=== PATIENT | male | born 1975 | race African-American/Black ===

== ENCOUNTER 2016-11-06 19:10 | Emergency (ER) | payer MEDICARE, MEDICAID ==
[~2016-11-06] VITALS: Ht 177.8 cm; Wt 168.0 kg
[~2016-11-06 19:10] MED LIST: AMOX125S8 PO; HALO100A IM; LISI10TA5 PO; METO-296 PO
[2016-11-07 01:10] LABS: BASOPHILS % 0.7 % (0.0-2.0); EOSINOPHILS % 2.6 % (0.0-5.0); HEMATOCRIT. 44.2 % (42.0-52.0); HEMOGLOBIN. 14.2 g/dL (14.0-18.0); LYMPHOCYTES % 22.5 % (20.0-50.0); MEAN CORPUSCULAR HGB CONC 32.2 g/dL (31.0-37.0); MEAN CORPUSCULAR VOLUME 80.7 fL (80.0-94.0); MEAN PLATELET VOLUME 9.8 fl (7.4-10.4); MONOCYTES % 9.1 % (2.0-8.0); NEUTROPHILS % 65.1 % (40.0-76.0); PLATELET 207 x1000/uL (130-400); RED BLOOD CELL COUNT 5.47 mill/uL (4.7-6.1); RED CELL DISTRIBUTION WIDTH 14.1 % (11.6-14.6); WHITE BLOOD COUNT 11.8 x1000/uL (4.5-11.0)
[2016-11-07 01:13] LABS: *AMPHETAMINES SCREEN URINE NEGATIVE (NEGATIVE); *BARBITURATES SCREEN URINE NEGATIVE (NEGATIVE); *BENZODIAZEPINES SCREEN URINE NEGATIVE (NEGATIVE); *COCAINE SCREEN URINE NEGATIVE (NEGATIVE); CANNABINOID URINE SCREEN NEGATIVE (NEGATIVE); ECSTASY MDMA SCREEN URINE NEGATIVE (NEGATIVE); METHADONE URINE SCREEN NEGATIVE (NEGATIVE); OPIATES URINE SCREEN NEGATIVE (NEGATIVE); PHENCYCLIDINE URINE SCREEN NEGATIVE (NEGATIVE)
[2016-11-07 01:18] LABS: ANION GAP 9; CARBON DIOXIDE 31 mEq/L (21-32); CHLORIDE 102 mEq/L (98-107); INDEX HEMOLYSI 1 (1-3); INDEX ICTERIC 1 (1-4); INDEX LIPEMIC 1 (1-3); UREA NITROGEN BLOOD 13 mg/dL (7-21)
[2016-11-07 01:19] LABS: ACETAMINOPHEN < 2 ug/mL (10-30); CALCIUM 8.8 mg/dL (8.5-10.1); ETHANOL BLOOD < 10 mg/dL; eGFR > 60 mL/min (>60)
[2016-11-07] MEDS ORDERED: METOPROLOL TARTRATE 25MG TABLET PO ONE (20:00)
[2016-11-08 04:00] VITALS: BP 142/68
== END 2016-11-08 11:59 | disposition left against medical advice (07) ==
LOC: ER 19:11
DX: F20.9 Schizophrenia, unspecified (principal); F31.9 Bipolar disorder, unspecified; J45.909 Unspecified asthma, uncomplicated; I10 Essential (primary) hypertension; N40.0 Benign prostatic hyperplasia without lower urinary tract symptoms; Z88.8 Allergy status to other drugs, medicaments and biological substances; Z79.899 Other long term (current) drug therapy; Z79.2 Long term (current) use of antibiotics; Z90.49 Acquired absence of other specified parts of digestive tract; Z59.0 Homelessness
CPT/HCPCS: 36415; 80048; 80305; 80307; 80329; 85025; 99284; G0482

== ENCOUNTER 2016-12-01 03:06 | Emergency (ER) | payer MEDICARE, MEDICAID ==
[~2016-12-01] VITALS: Ht 180.3 cm; Wt 170.0 kg
[2016-12-01 03:45] VITALS: BP 123/80
[2016-12-01] MEDS ORDERED: IBUPROFEN 800MG TABLET PO ONE (04:30)
[2016-12-01] MEDS ORDERED: FUROSEMIDE 40MG TABLET PO ONE (04:30)
== END 2016-12-01 07:07 | disposition home or self-care (01) ==
LOC: ER 03:09
DX: R60.0 Localized edema (principal); G89.29 Other chronic pain; I10 Essential (primary) hypertension; J45.909 Unspecified asthma, uncomplicated; Z88.3 Allergy status to other anti-infective agents; Z88.8 Allergy status to other drugs, medicaments and biological substances; Z90.49 Acquired absence of other specified parts of digestive tract
CPT/HCPCS: 99283

== ENCOUNTER 2016-12-17 15:57 | Emergency (ER) | payer MEDICARE, MEDICAID ==
[~2016-12-17] VITALS: Ht 177.8 cm; Wt 163.0 kg
[2016-12-17] MEDS ORDERED: IPRATROPIUM BROMIDE (0.02%) 0.5MG/2.5ML NEB HHN STA (22:20)
[2016-12-17] MEDS ORDERED: ALBUTEROL (0.083%) 2.5MG/3ML NEB HHN STA (22:20)
[2016-12-17] MEDS ORDERED: ZIPRASIDONE HCL 60MG CAPSULE PO ONE (22:45)
[2016-12-17] MEDS ORDERED: METOPROLOL TARTRATE 25MG TABLET PO ONE (22:45)
[2016-12-17] MEDS ORDERED: IPRATROPIUM/ALBUTEROL 0.5-3(2.5)MG/3ML NEB ONE (23:02)
[2016-12-17] MEDS ORDERED: ALBUTEROL (0.5%) 2.5MG/0.5ML NEB HHN ONE (23:03)
[2016-12-18 00:05] LABS: CHLORIDE 102 mEq/L (98-107); INDEX HEMOLYSI 1 (1-3); INDEX ICTERIC 1 (1-4); INDEX LIPEMIC 1 (1-3)
[2016-12-18 00:14] LABS: ACETAMINOPHEN < 2 ug/mL (10-30); ALANINE AMINOTRANSFERASE 23 IU/L (13-61); ALBUMIN 3.7 g/dL (3.4-5.0); ANION GAP 14; CALCIUM 8.9 mg/dL (8.5-10.1); CARBON DIOXIDE 26 mEq/L (21-32); ETHANOL BLOOD < 10 mg/dL; UREA NITROGEN BLOOD 12 mg/dL (7-21); eGFR > 60 mL/min (>60)
[2016-12-18 00:19] LABS: BASOPHILS % 0.5 % (0.0-2.0); DIFFERENTIAL COMMENT 0; EOSINOPHILS % 2.7 % (0.0-5.0); HEMATOCRIT. 45.3 % (42.0-52.0); HEMOGLOBIN. 14.9 g/dL (14.0-18.0); LYMPHOCYTES % 15.9 % (20.0-50.0); MEAN CORPUSCULAR HEMOGLOBIN 26.3 pg (28.0-32.0); MEAN CORPUSCULAR VOLUME 79.8 fL (80.0-94.0); MEAN PLATELET VOLUME 9.6 fl (7.4-10.4); MONOCYTES % 7.1 % (2.0-8.0); NEUTROPHILS % 73.8 % (40.0-76.0); PLATELET 223 x1000/uL (130-400); RED BLOOD CELL COUNT 5.67 mill/uL (4.7-6.1); RED CELL DISTRIBUTION WIDTH 14.4 % (11.6-14.6); WHITE BLOOD COUNT 14.9 x1000/uL (4.5-11.0)
[2016-12-18 04:57] LABS: *AMPHETAMINES SCREEN URINE NEGATIVE (NEGATIVE); *BARBITURATES SCREEN URINE NEGATIVE (NEGATIVE); *COCAINE SCREEN URINE NEGATIVE (NEGATIVE); CANNABINOID URINE SCREEN NEGATIVE (NEGATIVE); ECSTASY MDMA SCREEN URINE NEGATIVE (NEGATIVE); METHADONE URINE SCREEN NEGATIVE (NEGATIVE); OPIATES URINE SCREEN NEGATIVE (NEGATIVE); PHENCYCLIDINE URINE SCREEN NEGATIVE (NEGATIVE)
[2016-12-18 05:09] LABS: *BENZODIAZEPINES SCREEN URINE NEGATIVE (NEGATIVE)
[2016-12-18 09:00] VITALS: BP 138/71
[2016-12-18] MEDS ORDERED: OMEPRAZOLE 20MG CAPSULE EXTENDED RELEASE PO ONE (10:30)
== END 2016-12-18 11:40 | disposition left against medical advice (07) ==
LOC: ER 15:57
DX: J45.901 Unspecified asthma with (acute) exacerbation (principal); I10 Essential (primary) hypertension; D64.9 Anemia, unspecified; Z59.0 Homelessness; Z90.49 Acquired absence of other specified parts of digestive tract; Z79.899 Other long term (current) drug therapy
CPT/HCPCS: 36415; 80053; 80302; 80305; 80329; 85025; 94640; 99284; G0482; J7611; J7620

== ENCOUNTER 2017-01-09 10:43 | Emergency (ER) | payer MEDICARE, MEDICAID ==
[~2017-01-09] VITALS: Ht 182.9 cm; Wt 128.0 kg
[2017-01-09 12:12] LABS: BASOPHILS % 0.5 % (0.0-2.0); DIFFERENTIAL COMMENT 0; HEMATOCRIT. 39.9 % (42.0-52.0); LYMPHOCYTES % 15.8 % (20.0-50.0); MEAN CORPUSCULAR HEMOGLOBIN 25.8 pg (28.0-32.0); MEAN CORPUSCULAR HGB CONC 32.6 g/dL (31.0-37.0); MEAN CORPUSCULAR VOLUME 79.1 fL (80.0-94.0); MEAN PLATELET VOLUME 9.6 fl (7.4-10.4); MONOCYTES % 8.2 % (2.0-8.0); NEUTROPHILS % 72.5 % (40.0-76.0); PLATELET 196 x1000/uL (130-400); RED BLOOD CELL COUNT 5.04 mill/uL (4.7-6.1); RED CELL DISTRIBUTION WIDTH 14.8 % (11.6-14.6); WHITE BLOOD COUNT 10.2 x1000/uL (4.5-11.0)
[2017-01-09 12:19] LABS: PROTHROMBIN TIME 10.5 sec
[2017-01-09 12:26] LABS: ACETAMINOPHEN < 2 ug/mL (10-30); ALANINE AMINOTRANSFERASE 30 IU/L (13-61); ALBUMIN 3.5 g/dL (3.4-5.0); ANION GAP 12; CALCIUM 8.5 mg/dL (8.5-10.1); CARBON DIOXIDE 26 mEq/L (21-32); CHLORIDE 107 mEq/L (98-107); INDEX HEMOLYSI 1 (1-3); INDEX ICTERIC 1 (1-4); INDEX LIPEMIC 1 (1-3); UREA NITROGEN BLOOD 9 mg/dL (7-21); eGFR > 60 mL/min (>60)
[2017-01-09 12:27] LABS: NT PRO B-TYPE NATRIURETIC PEP 124 pg/mL (5-125)
[2017-01-09 12:56] LABS: CLARITY URINE CLEAR (CLEAR); COLOR URINE YELLOW (YELLOW); GLUCOSE URINE NEGATIVE (NEGATIVE); KETONES URINE NEGATIVE (NEGATIVE); LEUKOCYTE ESTERASE URINE NEGATIVE (NEGATIVE); NITRITE URINE NEGATIVE (NEGATIVE); OCCULT BLOOD URINE NEGATIVE (NEGATIVE); PROTEIN URINE NEGATIVE (NEGATIVE); SPECIFIC GRAVITY URINE 1.012 (1.005-1.030); UROBILINOGEN URINE 0.2 E.U./dL (0.2-1.0)
[2017-01-09 13:11] LABS: *AMPHETAMINES SCREEN URINE NEGATIVE (NEGATIVE); *BARBITURATES SCREEN URINE NEGATIVE (NEGATIVE); *BENZODIAZEPINES SCREEN URINE NEGATIVE (NEGATIVE); *COCAINE SCREEN URINE NEGATIVE (NEGATIVE); CANNABINOID URINE SCREEN NEGATIVE (NEGATIVE); ECSTASY MDMA SCREEN URINE NEGATIVE (NEGATIVE); METHADONE URINE SCREEN NEGATIVE (NEGATIVE); OPIATES URINE SCREEN NEGATIVE (NEGATIVE); PHENCYCLIDINE URINE SCREEN NEGATIVE (NEGATIVE)
[2017-01-09 15:44] VITALS: BP 131/69
== END 2017-01-09 16:07 | disposition home or self-care (01) ==
LOC: ER 11:29
DX: F41.9 Anxiety disorder, unspecified (principal); J45.909 Unspecified asthma, uncomplicated; F31.9 Bipolar disorder, unspecified; I10 Essential (primary) hypertension; F20.9 Schizophrenia, unspecified; Z88.8 Allergy status to other drugs, medicaments and biological substances; Z79.899 Other long term (current) drug therapy
CPT/HCPCS: 36415; 80053; 80305; 80307; 80329; 81003; 83880; 85025; 85610; 93005; 99284; 99285

== ENCOUNTER 2017-01-20 12:38 | Emergency (ER) | payer MEDICARE, MEDICAID ==
[~2017-01-20] VITALS: Ht 167.6 cm; Wt 160.0 kg
[2017-01-20 12:42] VITALS: BP 177/86
== END 2017-01-20 16:57 | disposition home or self-care (01) ==
LOC: ER 13:12
DX: M54.2 Cervicalgia (principal); G89.29 Other chronic pain; J45.909 Unspecified asthma, uncomplicated; I10 Essential (primary) hypertension; F20.9 Schizophrenia, unspecified; R22.1 Localized swelling, mass and lump, neck; F31.89 Other bipolar disorder; Z90.49 Acquired absence of other specified parts of digestive tract; Z92.29 Personal history of other drug therapy
CPT/HCPCS: 99283

== ENCOUNTER 2017-01-20 18:00 | Emergency (ER) | payer MEDICARE, MEDICAID | END 2017-01-21 01:52 | disposition left against medical advice (07) | LOC: ER 18:00 | DX: R06.02 Shortness of breath (principal); Z53.21 Procedure and treatment not carried out due to patient leaving prior to being seen by health care provider ==

== ENCOUNTER 2017-05-30 14:02 | Emergency (ER) | payer MEDICARE, MEDICAID ==
[~2017-05-30] VITALS: Ht 170.2 cm; Wt 137.0 kg
[~2017-05-30 14:02] MED LIST changes: -METO-296 PO; +METO-396 PO
[2017-05-30] MEDS ORDERED: CHLORPROMAZINE HCL 25 MG TABLET PO ONE (20:45)
[2017-05-30] MEDS ORDERED: METOPROLOL TARTRATE 25MG TABLET PO ONE (20:45)
[2017-05-30] MEDS ORDERED: ACETAMINOPHEN 500MG TABLET PO ONE (21:45)
[2017-05-30 22:08] VITALS: BP 145/83
== END 2017-05-30 22:09 | disposition home or self-care (01) ==
LOC: ER 14:02
DX: R51 Headache (principal); F20.9 Schizophrenia, unspecified; F31.9 Bipolar disorder, unspecified; I10 Essential (primary) hypertension; J45.909 Unspecified asthma, uncomplicated; Z88.8 Allergy status to other drugs, medicaments and biological substances; Z90.49 Acquired absence of other specified parts of digestive tract
CPT/HCPCS: 99284; Q0161

== ENCOUNTER 2017-06-06 04:46 | Emergency (ER) | payer MEDICARE, MEDICAID ==
[2017-06-06 07:47] LABS: BASOPHILS % 0.5 % (0.0-2.0); EOSINOPHILS % 2.4 % (0.0-5.0); HEMATOCRIT. 43.3 % (42.0-52.0); HEMOGLOBIN. 14.2 g/dL (14.0-18.0); MEAN CORPUSCULAR HEMOGLOBIN 25.9 pg (28.0-32.0); MEAN CORPUSCULAR VOLUME 78.8 fL (80.0-94.0); MEAN PLATELET VOLUME 9.6 fl (7.4-10.4); MONOCYTES % 8.7 % (2.0-8.0); NEUTROPHILS % 68.4 % (40.0-76.0); PLATELET 197 x1000/uL (130-400); RED CELL DISTRIBUTION WIDTH 14.5 % (11.6-14.6)
[2017-06-06 07:54] LABS: GLUCOSE URINE NEGATIVE (NEGATIVE); KETONES URINE NEGATIVE (NEGATIVE); LEUKOCYTE ESTERASE URINE NEGATIVE (NEGATIVE); NITRITE URINE NEGATIVE (NEGATIVE); OCCULT BLOOD URINE NEGATIVE (NEGATIVE); PROTEIN URINE NEGATIVE (NEGATIVE); SPECIFIC GRAVITY URINE 1.003 (1.005-1.030); UROBILINOGEN URINE 0.2 E.U./dL (0.2-1.0)
[2017-06-06 07:58] LABS: CLARITY URINE CLEAR (CLEAR); COLOR URINE YELLOW (YELLOW)
[2017-06-06 08:03] LABS: CARBON DIOXIDE 30 mEq/L (21-32); CHLORIDE 106 mEq/L (98-107); ETHANOL BLOOD < 10 mg/dL
[2017-06-06 08:09] LABS: *AMPHETAMINES SCREEN URINE NEGATIVE (NEGATIVE); *BARBITURATES SCREEN URINE NEGATIVE (NEGATIVE); *BENZODIAZEPINES SCREEN URINE NEGATIVE (NEGATIVE); *COCAINE SCREEN URINE NEGATIVE (NEGATIVE); CANNABINOID URINE SCREEN NEGATIVE (NEGATIVE); METHADONE URINE SCREEN NEGATIVE (NEGATIVE); OPIATES URINE SCREEN NEGATIVE (NEGATIVE); PHENCYCLIDINE URINE SCREEN NEGATIVE (NEGATIVE)
[2017-06-06] MEDS ORDERED: DOCUSATE SODIUM 250MG CAPSULE PO ONE (10:15)
[2017-06-06] MEDS ORDERED: METOPROLOL TARTRATE 25MG TABLET PO ONE (10:15)
[2017-06-06 12:10] VITALS: BP 118/76
[2017-06-07] MEDS ORDERED: ALBU18HF2 IH (09:17)
== END 2017-06-06 13:33 | disposition home or self-care (01) ==
LOC: ER 04:46
DX: R44.0 Auditory hallucinations (principal); E66.9 Obesity, unspecified; F20.9 Schizophrenia, unspecified; I10 Essential (primary) hypertension; J45.909 Unspecified asthma, uncomplicated; F31.9 Bipolar disorder, unspecified; Z59.0 Homelessness; Z88.8 Allergy status to other drugs, medicaments and biological substances
CPT/HCPCS: 36415; 80053; 80305; 81003; 85025; 99284; G0482

== ENCOUNTER 2017-06-07 06:29 | Emergency (ER) | payer MEDICARE, MEDICAID ==
[~2017-06-07] VITALS: Ht 182.9 cm; Wt 118.0 kg
[2017-06-07 06:49] VITALS: BP 130/78
[2017-06-07] MEDS ORDERED: ALBU18HF2 IH (09:17)
== END 2017-06-07 07:35 | disposition home or self-care (01) ==
LOC: ER 06:30
DX: R51 Headache (principal); K59.09 Other constipation; E66.9 Obesity, unspecified; I10 Essential (primary) hypertension; J45.909 Unspecified asthma, uncomplicated; F41.9 Anxiety disorder, unspecified; Z88.8 Allergy status to other drugs, medicaments and biological substances
CPT/HCPCS: 99283

== ENCOUNTER 2017-06-08 17:29 | Emergency (ER) | payer MEDICARE, MEDICAID ==
[~2017-06-08 17:29] MED LIST changes: +ALBU18HF2 IH
== END 2017-06-08 18:17 | disposition left against medical advice (07) ==
LOC: ER 17:29
DX: R07.9 Chest pain, unspecified (principal); R06.02 Shortness of breath; Z53.21 Procedure and treatment not carried out due to patient leaving prior to being seen by health care provider

== ENCOUNTER 2017-08-24 03:33 | Emergency (ER) | payer MEDICARE, MEDICAID ==
[~2017-08-24] VITALS: Ht 180.3 cm; Wt 161.0 kg
[2017-08-24 05:53] LABS: CLARITY URINE CLEAR (CLEAR); COLOR URINE YELLOW (YELLOW); KETONES URINE NEGATIVE (NEGATIVE); LEUKOCYTE ESTERASE URINE NEGATIVE (NEGATIVE); NITRITE URINE NEGATIVE (NEGATIVE); OCCULT BLOOD URINE NEGATIVE (NEGATIVE); PROTEIN URINE NEGATIVE (NEGATIVE); SPECIFIC GRAVITY URINE 1.021 (1.005-1.030)
[2017-08-24 06:22] LABS: BASOPHILS % 0.2 % (0.0-2.0); EOSINOPHILS % 3.7 % (0.0-5.0); HEMATOCRIT. 41.1 % (42.0-52.0); HEMOGLOBIN. 13.2 g/dL (14.0-18.0); LYMPHOCYTES % 17.6 % (20.0-50.0); MEAN CORPUSCULAR HEMOGLOBIN 25.9 pg (28.0-32.0); MEAN CORPUSCULAR VOLUME 80.9 fL (80.0-94.0); MEAN PLATELET VOLUME 9.5 fl (7.4-10.4); MONOCYTES % 8.1 % (2.0-8.0); NEUTROPHILS % 70.4 % (40.0-76.0); PLATELET 176 x1000/uL (130-400); RED BLOOD CELL COUNT 5.08 mill/uL (4.7-6.1); RED CELL DISTRIBUTION WIDTH 14.5 % (11.6-14.6)
[2017-08-24 06:29] LABS: PROTHROMBIN TIME 10.2 sec (9.4-11.6)
[2017-08-24 06:37] LABS: CARBON DIOXIDE 28 mEq/L (21-32); CHLORIDE 107 mEq/L (98-107)
[2017-08-24 07:56] VITALS: BP 138/78
== END 2017-08-24 09:03 | disposition left against medical advice (07) ==
LOC: ER 03:45
DX: Z53.21 Procedure and treatment not carried out due to patient leaving prior to being seen by health care provider (principal)
CPT/HCPCS: 36415; 80053; 81003; 83690; 85025; 85610; 99284

== ENCOUNTER 2017-08-24 14:05 | Emergency (ER) | payer MEDICARE, MEDICAID ==
[~2017-08-24] VITALS: Ht 177.8 cm; Wt 140.0 kg
[2017-08-24 14:07] VITALS: BP 129/82
== END 2017-08-24 16:50 | disposition left against medical advice (07) ==
LOC: ER 14:05
DX: Z53.21 Procedure and treatment not carried out due to patient leaving prior to being seen by health care provider (principal)

== ENCOUNTER 2017-09-06 21:38 | Emergency (ER) | payer MEDICARE, MEDICAID ==
[~2017-09-06] VITALS: Ht 182.9 cm; Wt 118.0 kg
[2017-09-07] LABS: BASOPHILS % 0.5 % (0.0-2.0); EOSINOPHILS % 4.2 % (0.0-5.0); HEMATOCRIT. 38.7 % (42.0-52.0); HEMOGLOBIN. 12.4 g/dL (14.0-18.0); LYMPHOCYTES % 20.2 % (20.0-50.0); MEAN CORPUSCULAR HEMOGLOBIN 25.9 pg (28.0-32.0); MEAN CORPUSCULAR VOLUME 80.5 fL (80.0-94.0); MEAN PLATELET VOLUME 8.5 fl (7.4-10.4); NEUTROPHILS % 67.1 % (40.0-76.0); PLATELET 247 x1000/uL (130-400); RED BLOOD CELL COUNT 4.81 mill/uL (4.7-6.1); RED CELL DISTRIBUTION WIDTH 14.6 % (11.6-14.6)
[2017-09-07 00:06] LABS: CHLORIDE 105 mEq/L (98-107)
[2017-09-07 00:12] LABS: CARBON DIOXIDE 29 mEq/L (21-32); ETHANOL BLOOD < 10 mg/dL
[2017-09-07 01:04] LABS: CLARITY URINE CLEAR (CLEAR); COLOR URINE YELLOW (YELLOW); KETONES URINE TRACE (NEGATIVE); LEUKOCYTE ESTERASE URINE NEGATIVE (NEGATIVE); NITRITE URINE NEGATIVE (NEGATIVE); OCCULT BLOOD URINE NEGATIVE (NEGATIVE); PROTEIN URINE NEGATIVE (NEGATIVE); SPECIFIC GRAVITY URINE 1.021 (1.005-1.030)
[2017-09-07 01:45] LABS: *AMPHETAMINES SCREEN URINE NEGATIVE (NEGATIVE); *BARBITURATES SCREEN URINE PRESUMTIVE POSITIVE (NEGATIVE); *BENZODIAZEPINES SCREEN URINE NEGATIVE (NEGATIVE); *COCAINE SCREEN URINE NEGATIVE (NEGATIVE); CANNABINOID URINE SCREEN NEGATIVE (NEGATIVE); METHADONE URINE SCREEN NEGATIVE (NEGATIVE); OPIATES URINE SCREEN NEGATIVE (NEGATIVE); PHENCYCLIDINE URINE SCREEN NEGATIVE (NEGATIVE)
[2017-09-07] MEDS ORDERED: TAMSULOSIN HCL 0.4MG SR CAPSULE PO ONE (09:30)
[2017-09-07] MEDS ORDERED: FUROSEMIDE 40MG TABLET PO ONE (09:30)
[2017-09-07] MEDS ORDERED: METOPROLOL TARTRATE 25MG TABLET PO ONE (09:30)
[2017-09-07] MEDS ORDERED: BENAZEPRIL 20MG TABLET PO ONE (09:30)
[2017-09-07] MEDS ORDERED: LIDOCAINE HCL 1% 20ML VIAL (Pyxis) INJ INFIL ONE (15:15)
[2017-09-07] MEDS ORDERED: CEFTRIAXONE SODIUM 250 MG/VIAL IM ONE (15:15)
[2017-09-07] MEDS ORDERED: LORAZEPAM 1MG TABLET PO ONE (18:45)
[2017-09-07 20:27] LABS: BASOPHILS % 0.9 % (0.0-2.0); EOSINOPHILS % 3.7 % (0.0-5.0); HEMATOCRIT. 41.9 % (42.0-52.0); HEMOGLOBIN. 13.6 g/dL (14.0-18.0); LYMPHOCYTES % 24.1 % (20.0-50.0); MEAN CORPUSCULAR HEMOGLOBIN 26.2 pg (28.0-32.0); MEAN CORPUSCULAR VOLUME 80.6 fL (80.0-94.0); MEAN PLATELET VOLUME 8.9 fl (7.4-10.4); MONOCYTES % 7.6 % (2.0-8.0); NEUTROPHILS % 63.7 % (40.0-76.0); PLATELET 278 x1000/uL (130-400); RED CELL DISTRIBUTION WIDTH 14.2 % (11.6-14.6)
[2017-09-08 01:56] VITALS: BP 122/71
== END 2017-09-08 02:28 ==
LOC: ER 21:53
DX: F23 Brief psychotic disorder (principal); R45.851 Suicidal ideations; F41.9 Anxiety disorder, unspecified; F32.9 Major depressive disorder, single episode, unspecified; J45.909 Unspecified asthma, uncomplicated; I10 Essential (primary) hypertension; D72.829 Elevated white blood cell count, unspecified; F13.10 Sedative, hypnotic or anxiolytic abuse, uncomplicated; Z90.49 Acquired absence of other specified parts of digestive tract
CPT/HCPCS: 36415; 71010; 80048; 80305; 81003; 82962; 85025; 96372; 99285; G0482; J0696; J3490

== ENCOUNTER 2019-05-04 06:31 | Emergency (ER) | payer MEDICARE, MEDICAID ==
[~2019-05-04] VITALS: Ht 182.9 cm; Wt 140.0 kg
[~2019-05-04 06:31] MED LIST changes: +AMOX125S12 PO; -AMOX125S8 PO
[2019-05-04 08:45] LABS: BASOPHILS % 0.7 % (0.0-2.0); EOSINOPHILS % 4.2 % (0.0-5.0); HEMATOCRIT. 47.6 % (42.0-52.0); LYMPHOCYTES % 16.9 % (20.0-50.0); MEAN CORPUSCULAR HEMOGLOBIN 27.7 pg (28.0-32.0); MEAN CORPUSCULAR VOLUME 82.2 fL (80.0-94.0); MEAN PLATELET VOLUME 9.3 fl (7.4-10.4); MONOCYTES % 6.2 % (2.0-8.0); PLATELET 186 x1000/uL (130-400); RED BLOOD CELL COUNT 5.79 mill/uL (4.7-6.1); RED CELL DISTRIBUTION WIDTH 14.5 % (11.6-14.6)
[2019-05-04 08:51] LABS: CHLORIDE 105 mEq/L (98-107)
[2019-05-04 08:52] LABS: PROTHROMBIN TIME 10.5 sec (9.6-11.0)
[2019-05-04 10:15] VITALS: BP 122/75
== END 2019-05-04 10:17 | disposition home or self-care (01) ==
LOC: ER 06:31
DX: R00.2 Palpitations (principal); J45.909 Unspecified asthma, uncomplicated; I10 Essential (primary) hypertension; I48.91 Unspecified atrial fibrillation; F17.200 Nicotine dependence, unspecified, uncomplicated; Z79.899 Other long term (current) drug therapy; Z88.8 Allergy status to other drugs, medicaments and biological substances
CPT/HCPCS: 36415; 71045; 84484; 93005; 99284

== ENCOUNTER 2019-06-01 06:27 | Emergency (ER) | payer MEDICARE, MEDICAID ==
[~2019-06-01] VITALS: Ht 185.4 cm; Wt 127.0 kg
[2019-06-01] MEDS ORDERED: OLANZAPINE 10 MG/VIAL IM ONE (09:15)
[2019-06-01] MEDS ORDERED: LORAZEPAM 1MG TABLET PO ONE (09:15)
[2019-06-01] MEDS ORDERED: ALBUTEROL (0.083%) 2.5MG/3ML NEB HHN ONE (09:15)
[2019-06-01 13:12] VITALS: BP 147/76
== END 2019-06-01 13:13 | disposition home or self-care (01) ==
LOC: ER 06:27
DX: F41.9 Anxiety disorder, unspecified (principal); J45.901 Unspecified asthma with (acute) exacerbation; F31.9 Bipolar disorder, unspecified; I10 Essential (primary) hypertension; F17.200 Nicotine dependence, unspecified, uncomplicated; I48.91 Unspecified atrial fibrillation; Z88.8 Allergy status to other drugs, medicaments and biological substances; Z79.899 Other long term (current) drug therapy
CPT/HCPCS: 71045; 94640; 96372; 99284; J3490; J7611

== ENCOUNTER 2019-06-03 00:15 | Inpatient (IN) | payer MEDICARE, MEDICAID ==
[~2019-06-03] VITALS: Ht 180.3 cm; Wt 162.4 kg
[2019-06-03] MEDS ORDERED: MAGNESIUM 2 G PREMIX 50 ML IV STA (01:53)
[2019-06-03] MEDS ORDERED: ALBUTEROL (0.083%) 2.5MG/3ML NEB HHN STA (01:53)
[2019-06-03] MEDS ORDERED: IPRATROPIUM BROMIDE (0.02%) 0.5MG/2.5ML NEB HHN STA (01:53)
[2019-06-03] MEDS ORDERED: DEXAMETHASONE 10 MG/ML VIAL IV ONE (02:00)
[2019-06-03 02:16] LABS: HEMATOCRIT 45.7 % (42.0-52.0); HEMOGLOBIN 14.9 g/dL (14.0-18.0); MEAN CORPUSCULAR HEMOGLOBIN 26.7 pg (28.0-32.0); MEAN CORPUSCULAR VOLUME 81.6 fL (80.0-94.0); PLATELET 188 x1000/uL (130-400); RED CELL DISTRIBUTION WIDTH 13.8 % (11.6-14.6)
[2019-06-03 02:23] LABS: CHLORIDE 106 mEq/L (98-107)
[2019-06-03] MEDS ORDERED: DIPHENHYDRAMINE 25MG CAPSULE PO ONE (02:30)
[2019-06-03] MEDS ORDERED: DIPHENHYDRAMINE 50MG/ML VIAL IV PRN (08:00)
[2019-06-03] MEDS ORDERED: CLONIDINE 0.1MG TABLET PO PRN (08:00)
[2019-06-03] MEDS ORDERED: KETOROLAC 15MG/ML VIAL IV PRN ×2 (08:00→17:30)
[2019-06-03] MEDS ORDERED: NITROGLYCERIN 0.4MG TABLET SL SL PRN (08:00)
[2019-06-03] MEDS ORDERED: DOCUSATE SODIUM 100MG CAPSULE PO PRN (08:00)
[2019-06-03] MEDS ORDERED: HALOPERIDOL LACTATE 5MG/ML VIAL IM PRN (08:00)
[2019-06-03] MEDS ORDERED: ACETAMINOPHEN 325MG TABLET PO PRN (08:00)
[2019-06-03] MEDS ORDERED: GUAIFENESIN 200MG/10ML SUGAR FREE UDC PO PRN (08:00)
[2019-06-03] MEDS ORDERED: ONDANSETRON HCL 4MG/2ML INJ IV PRN (08:00)
[2019-06-03] MEDS ORDERED: IPRATROPIUM/ALBUTEROL 0.5-3(2.5)MG/3ML NEB NEB PRN (08:00)
[2019-06-03] MEDS ORDERED: MAGNESIUM/ALUMINUM HYDROXIDE/SIMETHICONE 30ML UDC PO PRN (08:00)
[2019-06-03] MEDS ORDERED: ZOLPIDEM TARTRATE 5MG TABLET PO PRN (08:00)
[2019-06-03 08:10] LABS: ETHANOL BLOOD < 10 mg/dL
[2019-06-03 08:13] LABS: HDL CHOLESTEROL 35 mg/dL (40-59); LDL CHOLESTEROL 71 mg/dL (5-100)
[2019-06-03] MEDS ORDERED: DILT180C93 PO (08:21)
[2019-06-03] MEDS ORDERED: ASPI-1393 PO (08:21)
[2019-06-03] MEDS ORDERED: TAMS-11 PO (08:21)
[2019-06-03] MEDS ORDERED: METO-396 PO (08:21)
[2019-06-03] MEDS ORDERED: FURO-151 PO (08:21)
[2019-06-03] MEDS ORDERED: HAL5 PO (08:21)
[2019-06-03 08:30] VITALS: BP 156/78
[2019-06-03 09:00] VITALS: BP 156/78
[2019-06-03] MEDS ORDERED: ASPIRIN 325MG EC TABLET PO SCH (09:00)
[2019-06-03] MEDS: IPRATROPIUM/ALBUTEROL 0.5-3(2.5)MG/3ML NEB HHN SCH ×4 (09:07→21:02)
[2019-06-03] MEDS: GUAIFENESIN/DM 600MG/30MG ER TAB 12HR PO SCH ×2 (09:31→20:01)
[2019-06-03] MEDS: ENOXAPARIN 40MG/0.4ML SYR SUBCUT SCH ×2 (09:32→20:01)
[2019-06-03] MEDS ORDERED: PREDNISONE 20MG TABLET PO SCH (10:00)
[2019-06-03] MEDS ORDERED: LEVOFLOXACIN 500MG PREMIX 100 ML IV SCH (10:00)
[2019-06-03 12:00] VITALS: BP 121/53
[2019-06-03] MEDS: DILTIAZEM HCL 60MG TABLET PO SCH ×2 (12:37→17:35)
[2019-06-03] MEDS: LORAZEPAM 0.5MG TABLET PO PRN ×2 (14:04→17:51)
[2019-06-03 16:00] VITALS: BP 158/73
[2019-06-03 20:00] VITALS: BP 158/75
[2019-06-03 23:12] LABS: OPIATES URINE SCREEN NEGATIVE (NEGATIVE)
[2019-06-03 23:13] LABS: *AMPHETAMINES SCREEN URINE NEGATIVE (NEGATIVE); *BARBITURATES SCREEN URINE NEGATIVE (NEGATIVE); *BENZODIAZEPINES SCREEN URINE NEGATIVE (NEGATIVE); *COCAINE SCREEN URINE NEGATIVE (NEGATIVE); CANNABINOID URINE SCREEN NEGATIVE (NEGATIVE); PHENCYCLIDINE URINE SCREEN NEGATIVE (NEGATIVE)
[2019-06-03 23:14] LABS: METHADONE URINE SCREEN NEGATIVE (NEGATIVE)
[2019-06-04] VITALS: BP 112/61
[2019-06-04] MEDS: DILTIAZEM HCL 60MG TABLET PO SCH (00:02)
[2019-06-04] MEDS: IPRATROPIUM/ALBUTEROL 0.5-3(2.5)MG/3ML NEB HHN SCH (00:39)
== END 2019-06-04 01:00 | disposition left against medical advice (07) | DRG 189 ==
LOC: ER 00:15 → 6WST 03:58 → EDBEDREQTM 04:03 → EDBEDREQ 04:03 → ENRESERV 07:15
PROVIDERS: ADMIT Internal Medicine; ATTEND Internal Medicine
DX: J96.00 Acute respiratory failure, unspecified whether with hypoxia or hypercapnia (principal); J45.901 Unspecified asthma with (acute) exacerbation; Z68.42 Body mass index [BMI] 45.0-49.9, adult; E11.9 Type 2 diabetes mellitus without complications; F20.9 Schizophrenia, unspecified; F31.9 Bipolar disorder, unspecified; I10 Essential (primary) hypertension; I48.91 Unspecified atrial fibrillation; E66.01 Morbid (severe) obesity due to excess calories; F17.210 Nicotine dependence, cigarettes, uncomplicated; Z53.21 Procedure and treatment not carried out due to patient leaving prior to being seen by health care provider; Z90.49 Acquired absence of other specified parts of digestive tract; Z79.51 Long term (current) use of inhaled steroids; Z79.899 Other long term (current) drug therapy; Z88.8 Allergy status to other drugs, medicaments and biological substances
CPT/HCPCS: 36415; 71045; 80061; 80305; 80320; 82962; 83036; 85027; 93306; 94640; 99285; J1100; J1650; J1885; J1956; J3475; J7512; J7611; J7620; Q0163; G0480

== ENCOUNTER 2019-06-04 02:46 | Emergency (ER) | payer MEDICARE, MEDICAID ==
[~2019-06-04] VITALS: Ht 149.9 cm; Wt 186.0 kg
[~2019-06-04 02:46] MED LIST changes: +ASPI-1393 PO; +DILT180C93 PO; +FURO-151 PO; +HAL5 PO; +TAMS-11 PO
[2019-06-04 06:30] VITALS: BP 122/71
[2019-06-04] MEDS ORDERED: TRAMADOL 50MG TABLET PO ONE (06:30)
== END 2019-06-04 07:04 | disposition home or self-care (01) ==
LOC: ER 02:46
DX: M79.673 Pain in unspecified foot (principal); Z59.0 Homelessness; I48.91 Unspecified atrial fibrillation; J45.909 Unspecified asthma, uncomplicated; I10 Essential (primary) hypertension; Z90.89 Acquired absence of other organs; F17.200 Nicotine dependence, unspecified, uncomplicated; Z79.899 Other long term (current) drug therapy; Z88.2 Allergy status to sulfonamides
CPT/HCPCS: 99283

== ENCOUNTER 2019-06-08 21:57 | Inpatient (IN) | payer MEDICARE, MEDICAID ==
[~2019-06-08] VITALS: Ht 195.6 cm; Wt 176.9 kg
[2019-06-08] MEDS ORDERED: IPRATROPIUM BROMIDE (0.02%) 0.5MG/2.5ML NEB HHN STA (23:08)
[2019-06-08] MEDS: ALBUTEROL (0.083%) 2.5MG/3ML NEB HHN SCH ×2 (23:15→23:45)
[2019-06-08] MEDS ORDERED: MAGNESIUM 2 G PREMIX 50 ML IV ONE (23:15)
[2019-06-08 23:47] LABS: BASOPHILS % 0.6 % (0.0-2.0); EOSINOPHILS % 3.3 % (0.0-5.0); HEMATOCRIT. 42.6 % (42.0-52.0); LYMPHOCYTES % 18.8 % (20.0-50.0); MEAN CORPUSCULAR HEMOGLOBIN 27.1 pg (28.0-32.0); MEAN CORPUSCULAR VOLUME 82.3 fL (80.0-94.0); MONOCYTES % 5.1 % (2.0-8.0); NEUTROPHILS % 72.2 % (40.0-76.0); PLATELET 200 x1000/uL (130-400); RED BLOOD CELL COUNT 5.18 mill/uL (4.7-6.1); RED CELL DISTRIBUTION WIDTH 14.3 % (11.6-14.6)
[2019-06-08 23:54] LABS: CHLORIDE 102 mEq/L (98-107)
[2019-06-09] MEDS: ALBUTEROL (0.083%) 2.5MG/3ML NEB HHN SCH (00:15)
[2019-06-09] MEDS ORDERED: ALBUTEROL (0.083%) 2.5MG/3ML NEB HHN ONE (06:45)
[2019-06-09] MEDS ORDERED: CLONIDINE 0.1MG TABLET PO PRN (07:15)
[2019-06-09] MEDS ORDERED: GUAIFENESIN 200MG/10ML SUGAR FREE UDC PO PRN (07:15)
[2019-06-09] MEDS ORDERED: ACETAMINOPHEN 325MG TABLET PO PRN (07:15)
[2019-06-09] MEDS ORDERED: DIPHENHYDRAMINE 50MG/ML VIAL IV PRN (07:15)
[2019-06-09] MEDS ORDERED: HYDROCODONE/ACETAMINOPHEN 5/325MG TABLET PO PRN (07:15)
[2019-06-09] MEDS ORDERED: MAGNESIUM/ALUMINUM HYDROXIDE/SIMETHICONE 30ML UDC PO PRN (07:15)
[2019-06-09] MEDS ORDERED: ONDANSETRON HCL 4MG/2ML INJ IV PRN (07:15)
[2019-06-09] MEDS ORDERED: DOCUSATE SODIUM 100MG CAPSULE PO PRN (07:15)
[2019-06-09 09:09] LABS: PHOSPHORUS 3.8 mg/dL (2.5-4.9)
[2019-06-09 11:00] VITALS: BP 139/74
[2019-06-09] MEDS: IPRATROPIUM/ALBUTEROL 0.5-3(2.5)MG/3ML NEB HHN PRN ×2 (11:47→14:54)
[2019-06-09] MEDS ORDERED: DOCU-138 PO (11:59)
[2019-06-09] MEDS ORDERED: BUDESONIDE 0.5MG/2ML NEB HHN SCH (16:00)
[2019-06-09] MEDS ORDERED: MONTELUKAST SODIUM 10MG TABLET PO SCH (17:00)
[2019-06-09] MEDS ORDERED: NICOTINE 14MG PATCH TD SCH (17:00)
[2019-06-09] MEDS ORDERED: IPRATROPIUM/ALBUTEROL 0.5-3(2.5)MG/3ML NEB HHN SCH (18:00)
[2019-06-09] MEDS ORDERED: FAMOTIDINE 20MG/2ML VIAL IV SCH (21:00)
[2019-06-09] MEDS ORDERED: FLUTICASONE PROPIONATE 50MCG/SPRAY BOTTLE BOTHNSTRLS SCH (21:00)
[2019-06-10] MEDS ORDERED: LORATADINE 10MG TABLET PO SCH (09:00)
[2019-06-10] MEDS ORDERED: PREDNISONE 20MG TABLET PO SCH (09:00)
== END 2019-06-09 17:05 | disposition left against medical advice (07) | DRG 189 ==
LOC: ER 21:57 → 8WST 06-09 03:58 → EDBEDREQ 06-09 04:01 → EDBEDREQTM 06-09 04:01 → ENRESERV 06-09 08:26
PROVIDERS: ADMIT Internal Medicine; ATTEND Internal Medicine
DX: J96.01 Acute respiratory failure with hypoxia (principal); J45.901 Unspecified asthma with (acute) exacerbation; I50.22 Chronic systolic (congestive) heart failure; J44.1 Chronic obstructive pulmonary disease with (acute) exacerbation; E66.2 Morbid (severe) obesity with alveolar hypoventilation; Z68.42 Body mass index [BMI] 45.0-49.9, adult; J06.9 Acute upper respiratory infection, unspecified; J00 Acute nasopharyngitis [common cold]; E87.6 Hypokalemia; F12.90 Cannabis use, unspecified, uncomplicated; E11.65 Type 2 diabetes mellitus with hyperglycemia; F17.210 Nicotine dependence, cigarettes, uncomplicated; Z53.21 Procedure and treatment not carried out due to patient leaving prior to being seen by health care provider; F20.9 Schizophrenia, unspecified; F31.9 Bipolar disorder, unspecified; I11.0 Hypertensive heart disease with heart failure; I48.0 Paroxysmal atrial fibrillation; N40.0 Benign prostatic hyperplasia without lower urinary tract symptoms; Z90.49 Acquired absence of other specified parts of digestive tract; Z79.84 Long term (current) use of oral hypoglycemic drugs; Z88.8 Allergy status to other drugs, medicaments and biological substances; Z71.6 Tobacco abuse counseling
CPT/HCPCS: 36415; 71045; 83605; 83735; 83880; 84100; 84484; 93005; 93970; 94640; 99285; J3475; J7611; J7620

== ENCOUNTER 2019-06-09 21:40 | Inpatient (IN) | payer MEDICARE, MEDICAID ==
[~2019-06-09] VITALS: Ht 180.3 cm; Wt 180.5 kg
[~2019-06-09 21:40] MED LIST changes: +DOCU-138 PO
[2019-06-10] MEDS ORDERED: ALBUTEROL (0.083%) 2.5MG/3ML NEB HHN STA (03:22)
[2019-06-10] MEDS ORDERED: IPRATROPIUM BROMIDE (0.02%) 0.5MG/2.5ML NEB HHN STA (03:22)
[2019-06-10] MEDS ORDERED: CLONIDINE 0.1MG TABLET PO PRN (07:45)
[2019-06-10] MEDS ORDERED: DIPHENHYDRAMINE 50MG/ML VIAL IV PRN (07:45)
[2019-06-10] MEDS ORDERED: ENOXAPARIN 40MG/0.4ML SYR SUBCUT SCH ×2 (07:45→10:00)
[2019-06-10] MEDS ORDERED: GUAIFENESIN 200MG/10ML SUGAR FREE UDC PO PRN (07:45)
[2019-06-10] MEDS ORDERED: ONDANSETRON HCL 4MG/2ML INJ IV PRN (07:45)
[2019-06-10] MEDS ORDERED: IPRATROPIUM/ALBUTEROL 0.5-3(2.5)MG/3ML NEB HHN PRN ×2 (07:45→11:30)
[2019-06-10] MEDS ORDERED: DOCUSATE SODIUM 100MG CAPSULE PO PRN (07:45)
[2019-06-10] MEDS ORDERED: ACETAMINOPHEN 325MG TABLET PO PRN (07:45)
[2019-06-10] MEDS ORDERED: MAGNESIUM/ALUMINUM HYDROXIDE/SIMETHICONE 30ML UDC PO PRN (07:45)
[2019-06-10 08:29] VITALS: BP 138/86
[2019-06-10 10:15] VITALS: BP 138/86
[2019-06-10] MEDS ORDERED: LORATADINE 10MG TABLET PO SCH (11:30)
[2019-06-10] MEDS ORDERED: BUDESONIDE 0.5MG/2ML NEB HHN SCH (11:30)
[2019-06-10] MEDS ORDERED: IPRATROPIUM/ALBUTEROL 0.5-3(2.5)MG/3ML NEB HHN SCH (12:00)
[2019-06-10] MEDS ORDERED: PREDNISONE 20MG TABLET PO SCH (12:00)
[2019-06-10 12:20] VITALS: BP 132/78
[2019-06-10] MEDS ORDERED: FAMOTIDINE 20MG TABLET PO SCH (12:30)
[2019-06-10] MEDS ORDERED: FLUTICASONE PROPIONATE 50MCG/SPRAY BOTTLE BOTHNSTRLS SCH (13:00)
[2019-06-10 16:19] VITALS: BP 123/72
[2019-06-10] MEDS ORDERED: MONTELUKAST SODIUM 10MG TABLET PO SCH (17:00)
== END 2019-06-10 19:50 | disposition left against medical advice (07) | DRG 189 ==
LOC: ER 21:40 → 8WST 06-10 04:51 → ENRESERV 06-10 06:58
PROVIDERS: ADMIT Internal Medicine; ATTEND Internal Medicine
DX: J96.01 Acute respiratory failure with hypoxia (principal); J45.901 Unspecified asthma with (acute) exacerbation; I50.22 Chronic systolic (congestive) heart failure; Z68.43 Body mass index [BMI] 50.0-59.9, adult; E66.01 Morbid (severe) obesity due to excess calories; E87.6 Hypokalemia; F12.90 Cannabis use, unspecified, uncomplicated; F17.210 Nicotine dependence, cigarettes, uncomplicated; F20.9 Schizophrenia, unspecified; F31.9 Bipolar disorder, unspecified; G47.33 Obstructive sleep apnea (adult) (pediatric); I11.0 Hypertensive heart disease with heart failure; I48.0 Paroxysmal atrial fibrillation; E11.65 Type 2 diabetes mellitus with hyperglycemia; Z60.2 Problems related to living alone; N40.0 Benign prostatic hyperplasia without lower urinary tract symptoms; Z90.49 Acquired absence of other specified parts of digestive tract; Z91.19 Patient's noncompliance with other medical treatment and regimen; Z88.8 Allergy status to other drugs, medicaments and biological substances; Z79.899 Other long term (current) drug therapy; Z79.82 Long term (current) use of aspirin; Z71.6 Tobacco abuse counseling
CPT/HCPCS: 94640; 96372; 97162; 99285; J1650; J7611; J7620; J7626

== ENCOUNTER 2019-06-10 22:43 | Emergency (ER) | payer MEDICARE, MEDICAID ==
[~2019-06-10] VITALS: Ht 180.3 cm; Wt 160.0 kg
[2019-06-11 02:30] VITALS: BP 129/69
== END 2019-06-11 02:35 | disposition home or self-care (01) ==
LOC: ER 22:43
DX: J44.9 Chronic obstructive pulmonary disease, unspecified (principal); I48.91 Unspecified atrial fibrillation; I10 Essential (primary) hypertension; Z90.49 Acquired absence of other specified parts of digestive tract; F17.200 Nicotine dependence, unspecified, uncomplicated; Z79.82 Long term (current) use of aspirin; Z79.899 Other long term (current) drug therapy
CPT/HCPCS: 99283

== ENCOUNTER 2019-06-14 03:33 | Emergency (ER) | payer MEDICARE, OTHER ==
[~2019-06-14] VITALS: Ht 177.8 cm; Wt 136.0 kg
[~2019-06-14 03:33] MED LIST changes: -ALBU18HF2 IH; -AMOX125S12 PO; -HALO100A IM
[2019-06-14] MEDS ORDERED: IPRATROPIUM BROMIDE (0.02%) 0.5MG/2.5ML NEB HHN STA (09:32)
[2019-06-14] MEDS ORDERED: ALBUTEROL (0.083%) 2.5MG/3ML NEB HHN STA (09:32)
[2019-06-14 10:09] LABS: CHLORIDE 107 mEq/L (98-107)
[2019-06-14 10:19] LABS: BASOPHILS % 0.3 % (0.0-2.0); EOSINOPHILS % 4.3 % (0.0-5.0); HEMOGLOBIN. 14.7 g/dL (14.0-18.0); LYMPHOCYTES % 16.4 % (20.0-50.0); MEAN CORPUSCULAR VOLUME 82.4 fL (80.0-94.0); MEAN PLATELET VOLUME 9.5 fl (7.4-10.4); MONOCYTES % 6.5 % (2.0-8.0); NEUTROPHILS % 72.5 % (40.0-76.0); PLATELET 188 x1000/uL (130-400); RED BLOOD CELL COUNT 5.46 mill/uL (4.7-6.1); RED CELL DISTRIBUTION WIDTH 14.4 % (11.6-14.6)
[2019-06-14 10:55] VITALS: BP 148/81
== END 2019-06-14 11:00 | disposition home or self-care (01) ==
LOC: ER 03:33
DX: R06.00 Dyspnea, unspecified (principal); F17.200 Nicotine dependence, unspecified, uncomplicated; I48.91 Unspecified atrial fibrillation; J44.9 Chronic obstructive pulmonary disease, unspecified; Z79.899 Other long term (current) drug therapy
CPT/HCPCS: 36415; 71045; 80053; 83880; 84484; 85025; 93005; 94640; 99284; 99406; J7611

== ENCOUNTER 2019-06-22 02:25 | Emergency (ER) | payer MEDICARE, OTHER ==
[~2019-06-22] VITALS: Ht 180.3 cm; Wt 177.0 kg
[2019-06-22 02:32] VITALS: BP 138/78
== END 2019-06-22 03:28 | disposition left against medical advice (07) ==
LOC: ER 02:25
DX: R10.9 Unspecified abdominal pain (principal); Z53.21 Procedure and treatment not carried out due to patient leaving prior to being seen by health care provider

== ENCOUNTER 2019-06-22 04:12 | Emergency (ER) | payer MEDICARE, OTHER ==
[~2019-06-22] VITALS: Ht 180.3 cm; Wt 177.3 kg
[2019-06-22] MEDS ORDERED: IPRATROPIUM BROMIDE (0.02%) 0.5MG/2.5ML NEB HHN STA (04:46)
[2019-06-22] MEDS ORDERED: ALBUTEROL (0.083%) 2.5MG/3ML NEB HHN STA (04:46)
[2019-06-22 05:11] LABS: BASOPHILS % 0.3 % (0.0-2.0); EOSINOPHILS % 3.2 % (0.0-5.0); HEMATOCRIT. 43.6 % (42.0-52.0); HEMOGLOBIN. 14.4 g/dL (14.0-18.0); LYMPHOCYTES % 18.8 % (20.0-50.0); MEAN CORPUSCULAR HEMOGLOBIN 27.4 pg (28.0-32.0); MEAN CORPUSCULAR VOLUME 82.8 fL (80.0-94.0); MONOCYTES % 6.1 % (2.0-8.0); NEUTROPHILS % 71.6 % (40.0-76.0); PLATELET 181 x1000/uL (130-400); RED BLOOD CELL COUNT 5.27 mill/uL (4.7-6.1)
[2019-06-22 05:16] LABS: CHLORIDE 108 mEq/L (98-107)
[2019-06-22 06:30] VITALS: BP 142/59
== END 2019-06-22 07:13 | disposition home or self-care (01) ==
LOC: ER 04:12
DX: J44.1 Chronic obstructive pulmonary disease with (acute) exacerbation (principal); I10 Essential (primary) hypertension; I48.91 Unspecified atrial fibrillation; F17.200 Nicotine dependence, unspecified, uncomplicated; Z90.49 Acquired absence of other specified parts of digestive tract; Z79.899 Other long term (current) drug therapy; Z88.8 Allergy status to other drugs, medicaments and biological substances
CPT/HCPCS: 36415; 71045; 80053; 83880; 84484; 85025; 93005; 99284; J7611

== ENCOUNTER 2019-06-22 10:46 | Emergency (ER) | payer MEDICARE, OTHER ==
[~2019-06-22] VITALS: Ht 180.3 cm; Wt 177.0 kg
[2019-06-22 10:55] VITALS: BP 145/76
== END 2019-06-22 13:13 | disposition home or self-care (01) ==
LOC: ER 10:46
DX: I48.91 Unspecified atrial fibrillation (principal); I10 Essential (primary) hypertension; J44.9 Chronic obstructive pulmonary disease, unspecified; F17.200 Nicotine dependence, unspecified, uncomplicated; Z79.899 Other long term (current) drug therapy; Z79.82 Long term (current) use of aspirin; Z90.49 Acquired absence of other specified parts of digestive tract; Z88.8 Allergy status to other drugs, medicaments and biological substances
CPT/HCPCS: 99283

== ENCOUNTER 2019-09-29 18:42 | Emergency (ER) | payer MEDICARE, OTHER ==
[~2019-09-29] VITALS: Ht 348 cm; Wt 180.0 kg
[~2019-09-29 18:42] MED LIST changes: -ASPI-1393 PO; +ASPI-1497 PO; +DILT-27 PO; -DILT180C93 PO
[2019-09-29 19:20] VITALS: BP 158/87
[2019-09-29] MEDS ORDERED: RISPERIDONE 1MG TABLET PO STA (23:46)
[2019-09-30 00:42] LABS: BASOPHILS % 0.3 % (0.0-2.0); CHLORIDE 106 mEq/L (98-107); EOSINOPHILS % 1.9 % (0.0-5.0); HEMATOCRIT. 44.1 % (42.0-52.0); HEMOGLOBIN. 14.3 g/dL (14.0-18.0); LYMPHOCYTES % 22.1 % (20.0-50.0); MEAN CORPUSCULAR VOLUME 83.3 fL (80.0-94.0); MEAN PLATELET VOLUME 9.3 fl (7.4-10.4); MONOCYTES % 7.3 % (2.0-8.0); NEUTROPHILS % 68.4 % (40.0-76.0); PLATELET 180 x1000/uL (130-400); RED BLOOD CELL COUNT 5.29 mill/uL (4.7-6.1); RED CELL DISTRIBUTION WIDTH 14.2 % (11.6-14.6)
[2019-09-30 00:46] LABS: ETHANOL BLOOD < 10 mg/dL
== END 2019-09-30 00:45 | disposition home or self-care (01) ==
LOC: ER 18:42
DX: R44.0 Auditory hallucinations (principal); J02.9 Acute pharyngitis, unspecified; F12.90 Cannabis use, unspecified, uncomplicated; Z59.0 Homelessness
CPT/HCPCS: 36415; 80053; 80320; 85025; 99284; G0480

== ENCOUNTER 2019-10-18 18:12 | Emergency (ER) | payer MEDICARE, MEDICAID ==
[~2019-10-18] VITALS: Ht 180.3 cm; Wt 182.0 kg
[2019-10-18 23:23] LABS: BASOPHILS % 0.8 % (0.0-2.0); EOSINOPHILS % 1.8 % (0.0-5.0); HEMATOCRIT. 45.2 % (42.0-52.0); HEMOGLOBIN. 14.7 g/dL (14.0-18.0); LYMPHOCYTES % 22.9 % (20.0-50.0); MEAN CORPUSCULAR VOLUME 83.2 fL (80.0-94.0); MEAN PLATELET VOLUME 8.9 fl (7.4-10.4); NEUTROPHILS % 67.5 % (40.0-76.0); PLATELET 189 x1000/uL (130-400); RED BLOOD CELL COUNT 5.43 mill/uL (4.7-6.1); RED CELL DISTRIBUTION WIDTH 14.3 % (11.6-14.6)
[2019-10-18 23:27] LABS: CHLORIDE 106 mEq/L (98-107)
[2019-10-18] MEDS ORDERED: IPRATROPIUM BROMIDE (0.02%) 0.5MG/2.5ML NEB HHN NR (23:28)
[2019-10-18] MEDS ORDERED: ALBUTEROL (0.083%) 2.5MG/3ML NEB HHN NR (23:28)
[2019-10-19] MEDS ORDERED: FUROSEMIDE 40MG/4ML VIAL IVP ONE (02:30)
[2019-10-19 07:00] VITALS: BP 153/71
== END 2019-10-19 07:35 | disposition left against medical advice (07) ==
LOC: ER 18:53 → CANBEDREQ 10-19 14:27
DX: I50.23 Acute on chronic systolic (congestive) heart failure (principal); R60.0 Localized edema; J44.9 Chronic obstructive pulmonary disease, unspecified; F12.10 Cannabis abuse, uncomplicated; F17.200 Nicotine dependence, unspecified, uncomplicated; Z88.8 Allergy status to other drugs, medicaments and biological substances; Z79.899 Other long term (current) drug therapy; Z90.49 Acquired absence of other specified parts of digestive tract
CPT/HCPCS: 36415; 71045; 80053; 83880; 84484; 85025; 93005; 94640; 96374; 99284; J1940; J7611

== ENCOUNTER 2019-10-19 13:04 | Emergency (ER) | payer MEDICARE, MEDICAID ==
[~2019-10-19] VITALS: Ht 170.2 cm; Wt 176.0 kg
[2019-10-19 13:19] VITALS: BP 127/69
== END 2019-10-19 16:37 | disposition left against medical advice (07) ==
LOC: ER 13:04
DX: I50.9 Heart failure, unspecified (principal); Z53.21 Procedure and treatment not carried out due to patient leaving prior to being seen by health care provider

== ENCOUNTER 2019-10-22 20:36 | Emergency (ER) | payer MEDICARE, MEDICAID ==
[~2019-10-22] VITALS: Ht 180.3 cm; Wt 160.0 kg
[2019-10-23 00:52] VITALS: BP 138/79
== END 2019-10-23 02:57 | disposition left against medical advice (07) ==
LOC: ER 20:36
DX: Z53.21 Procedure and treatment not carried out due to patient leaving prior to being seen by health care provider (principal)

== ENCOUNTER 2019-10-24 13:04 | Emergency (ER) | payer MEDICARE, MEDICAID ==
[~2019-10-24] VITALS: Ht 167.6 cm; Wt 428.0 kg
[2019-10-24] MEDS ORDERED: ALBUTEROL (0.083%) 2.5MG/3ML NEB HHN STA (16:47)
[2019-10-24] MEDS ORDERED: IPRATROPIUM BROMIDE (0.02%) 0.5MG/2.5ML NEB HHN STA (16:47)
[2019-10-24] MEDS ORDERED: FUROSEMIDE 40MG/4ML VIAL IV ONE (17:00)
[2019-10-24 17:37] VITALS: BP 153/94
[2019-10-24] MEDS ORDERED: HALOPERIDOL 5MG TABLET PO ONE (18:00)
[2019-10-24 18:12] LABS: BASOPHILS % 0.4 % (0.0-2.0); EOSINOPHILS % 2.2 % (0.0-5.0); HEMATOCRIT. 45.9 % (42.0-52.0); HEMOGLOBIN. 14.6 g/dL (14.0-18.0); LYMPHOCYTES % 16.2 % (20.0-50.0); MEAN CORPUSCULAR HEMOGLOBIN 26.7 pg (28.0-32.0); MEAN CORPUSCULAR VOLUME 83.9 fL (80.0-94.0); MEAN PLATELET VOLUME 9.6 fl (7.4-10.4); MONOCYTES % 8.4 % (2.0-8.0); NEUTROPHILS % 72.8 % (40.0-76.0); PLATELET 193 x1000/uL (130-400); RED BLOOD CELL COUNT 5.47 mill/uL (4.7-6.1); RED CELL DISTRIBUTION WIDTH 14.4 % (11.6-14.6)
[2019-10-24 18:18] LABS: CHLORIDE 104 mEq/L (98-107)
== END 2019-10-24 18:50 | disposition home or self-care (01) ==
LOC: ER 13:04
DX: J44.9 Chronic obstructive pulmonary disease, unspecified (principal); R06.00 Dyspnea, unspecified; R60.9 Edema, unspecified; F17.200 Nicotine dependence, unspecified, uncomplicated; I10 Essential (primary) hypertension; Z79.899 Other long term (current) drug therapy; Z88.8 Allergy status to other drugs, medicaments and biological substances; Z90.49 Acquired absence of other specified parts of digestive tract
CPT/HCPCS: 36415; 71045; 80053; 83880; 84484; 85025; 93005; 94640; 96374; 99284; J1940; J7611

== ENCOUNTER 2019-10-24 22:24 | Emergency (ER) | payer MEDICARE, MEDICAID ==
[~2019-10-24] VITALS: Ht 182.9 cm; Wt 136.0 kg
[2019-10-25 04:41] VITALS: BP 150/86
== END 2019-10-25 10:48 | disposition left against medical advice (07) ==
LOC: ER 22:24
DX: J44.9 Chronic obstructive pulmonary disease, unspecified (principal); Z59.0 Homelessness; F17.210 Nicotine dependence, cigarettes, uncomplicated; Z71.6 Tobacco abuse counseling; I50.9 Heart failure, unspecified
CPT/HCPCS: 99281; 99406

== ENCOUNTER 2019-11-07 06:19 | Emergency (ER) | payer MEDICARE, MEDICAID ==
[~2019-11-07] VITALS: Ht 180.3 cm; Wt 181.0 kg
[2019-11-07] MEDS ORDERED: IPRATROPIUM BROMIDE (0.02%) 0.5MG/2.5ML NEB HHN STA (07:16)
[2019-11-07] MEDS ORDERED: FUROSEMIDE 40MG/4ML VIAL IV ONE (07:30)
[2019-11-07] MEDS ORDERED: METOPROLOL TARTRATE 25MG TABLET PO ONE (07:30)
[2019-11-07] MEDS ORDERED: DILTIAZEM HCL 180MG CAPSULE CD 24HR PO ONE (07:30)
[2019-11-07] MEDS ORDERED: ASPIRIN 81MG TABLET PO ONE (07:30)
[2019-11-07] MEDS: ALBUTEROL (0.083%) 2.5MG/3ML NEB HHN SCH ×3 (07:50→09:10)
[2019-11-07 09:49] LABS: BASOPHILS % 0.3 % (0.0-2.0); EOSINOPHILS % 2.8 % (0.0-5.0); HEMATOCRIT. 44.9 % (42.0-52.0); HEMOGLOBIN. 14.6 g/dL (14.0-18.0); LYMPHOCYTES % 19.7 % (20.0-50.0); MEAN CORPUSCULAR VOLUME 83.3 fL (80.0-94.0); MEAN PLATELET VOLUME 9.5 fl (7.4-10.4); MONOCYTES % 8.2 % (2.0-8.0); PLATELET 183 x1000/uL (130-400); RED BLOOD CELL COUNT 5.39 mill/uL (4.7-6.1); RED CELL DISTRIBUTION WIDTH 14.4 % (11.6-14.6)
[2019-11-07 09:53] LABS: CHLORIDE 107 mEq/L (98-107)
[2019-11-07 10:01] LABS: ETHANOL BLOOD < 10 mg/dL
[2019-11-07] MEDS ORDERED: FUROSEMIDE 40MG TABLET PO ONE (10:30)
[2019-11-07 12:43] VITALS: BP 133/75
== END 2019-11-07 13:02 | disposition home or self-care (01) ==
LOC: ER 06:19 → CANBEDREQ 13:47
DX: J45.901 Unspecified asthma with (acute) exacerbation (principal); I11.0 Hypertensive heart disease with heart failure; I50.9 Heart failure, unspecified; J44.9 Chronic obstructive pulmonary disease, unspecified; N18.9 Chronic kidney disease, unspecified; E11.9 Type 2 diabetes mellitus without complications; F12.10 Cannabis abuse, uncomplicated; Z90.49 Acquired absence of other specified parts of digestive tract; Z88.8 Allergy status to other drugs, medicaments and biological substances; Z79.899 Other long term (current) drug therapy
CPT/HCPCS: 36415; 71045; 80053; 80320; 83880; 84484; 85025; 93005; 94640; 99285; G0480

== ENCOUNTER 2019-11-07 20:45 | Emergency (ER) | payer MEDICARE, MEDICAID ==
[~2019-11-07] VITALS: Ht 180.3 cm; Wt 188.0 kg
[2019-11-08] MEDS ORDERED: ENALAPRIL 5MG TABLET PO SCH (02:00)
[2019-11-08] MEDS ORDERED: FUROSEMIDE 40MG TABLET PO ONE (02:00)
[2019-11-08 03:13] LABS: BASOPHILS % 0.7 % (0.0-2.0); EOSINOPHILS % 0.5 % (0.0-5.0); HEMATOCRIT. 47.1 % (42.0-52.0); HEMOGLOBIN. 15.5 g/dL (14.0-18.0); LYMPHOCYTES % 9.9 % (20.0-50.0); MEAN CORPUSCULAR HEMOGLOBIN 27.5 pg (28.0-32.0); MEAN CORPUSCULAR VOLUME 83.6 fL (80.0-94.0); MEAN PLATELET VOLUME 9.7 fl (7.4-10.4); MONOCYTES % 6.1 % (2.0-8.0); NEUTROPHILS % 82.8 % (40.0-76.0); PLATELET 201 x1000/uL (130-400); RED BLOOD CELL COUNT 5.63 mill/uL (4.7-6.1); RED CELL DISTRIBUTION WIDTH 14.2 % (11.6-14.6)
[2019-11-08 03:19] LABS: CHLORIDE 107 mEq/L (98-107)
[2019-11-08] MEDS ORDERED: DEXAMETHASONE 4MG/ML 1ML VIAL IM ONE (04:15)
[2019-11-08] MEDS ORDERED: IPRATROPIUM/ALBUTEROL 0.5-3(2.5)MG/3ML NEB HHN ONE ×3 (04:15)
[2019-11-08] MEDS ORDERED: MAGNESIUM 2 G PREMIX 50 ML IV ONE (05:30)
[2019-11-08] MEDS ORDERED: ACETAMINOPHEN 325MG TABLET PO PRN (08:30)
[2019-11-08] MEDS ORDERED: IPRATROPIUM/ALBUTEROL 0.5-3(2.5)MG/3ML NEB HHN PRN (08:30)
[2019-11-08] MEDS ORDERED: ONDANSETRON HCL 4MG/2ML INJ IV PRN (08:30)
[2019-11-08] MEDS ORDERED: DILTIAZEM HCL 180MG CAPSULE CD 24HR PO NR (09:15)
[2019-11-08] MEDS ORDERED: ASPIRIN 81MG TABLET PO NR (09:15)
[2019-11-08] MEDS ORDERED: FUROSEMIDE 40MG/4ML VIAL IVP NR (09:45)
[2019-11-08] MEDS ORDERED: LISINOPRIL 5MG TABLET PO SCH (11:15)
[2019-11-08] MEDS ORDERED: BUDESONIDE 0.5MG/2ML NEB HHN SCH (11:30)
[2019-11-08 12:36] VITALS: BP 150/72
[2019-11-08] MEDS ORDERED: FUROSEMIDE 40MG/4ML VIAL IVP SCH (17:15)
[2019-11-09] MEDS ORDERED: ASPIRIN 81MG TABLET PO SCH (09:00)
[2019-11-09] MEDS ORDERED: DILTIAZEM HCL 180MG CAPSULE CD 24HR PO SCH (09:00)
== END 2019-11-08 15:00 | disposition left against medical advice (07) ==
LOC: ER 20:45 → EDBEDREQ 11-08 06:44 → CANBEDREQ 11-08 14:51 → ER 11-08 15:00
DX: I11.0 Hypertensive heart disease with heart failure (principal); I50.23 Acute on chronic systolic (congestive) heart failure; F17.210 Nicotine dependence, cigarettes, uncomplicated; I43 Cardiomyopathy in diseases classified elsewhere; G47.33 Obstructive sleep apnea (adult) (pediatric); E66.01 Morbid (severe) obesity due to excess calories; Z68.43 Body mass index [BMI] 50.0-59.9, adult; J44.9 Chronic obstructive pulmonary disease, unspecified; I48.91 Unspecified atrial fibrillation; Z79.899 Other long term (current) drug therapy; Z79.51 Long term (current) use of inhaled steroids; Z71.3 Dietary counseling and surveillance
CPT/HCPCS: 36415; 71045; 80053; 83880; 84145; 84484; 85025; 93005; 99285; J1100; J1940; J3475; J7626

== ENCOUNTER 2019-11-08 23:53 | Emergency (ER) | payer MEDICARE, MEDICAID ==
[~2019-11-08] VITALS: Ht 180.3 cm; Wt 181.8 kg
[2019-11-09 03:11] VITALS: BP 153/86
== END 2019-11-09 10:24 | disposition left against medical advice (07) ==
LOC: ER 23:53
DX: R06.02 Shortness of breath (principal); J44.9 Chronic obstructive pulmonary disease, unspecified; I10 Essential (primary) hypertension; Z88.8 Allergy status to other drugs, medicaments and biological substances; Z79.899 Other long term (current) drug therapy; Z90.49 Acquired absence of other specified parts of digestive tract; Z79.82 Long term (current) use of aspirin
CPT/HCPCS: 99283

== ENCOUNTER 2019-11-09 23:03 | Emergency (ER) | payer MEDICARE, MEDICAID ==
[~2019-11-09] VITALS: Ht 180.3 cm; Wt 181.0 kg
[2019-11-09 23:06] VITALS: BP 159/78
== END 2019-11-10 03:15 | disposition left against medical advice (07) ==
LOC: ER 23:03
DX: R60.0 Localized edema (principal); I11.0 Hypertensive heart disease with heart failure; I50.9 Heart failure, unspecified; I48.91 Unspecified atrial fibrillation; J44.9 Chronic obstructive pulmonary disease, unspecified; Z79.82 Long term (current) use of aspirin; Z79.899 Other long term (current) drug therapy
CPT/HCPCS: 99282

== ENCOUNTER 2019-11-10 15:28 | Emergency (ER) | payer MEDICARE, MEDICAID ==
[~2019-11-10] VITALS: Ht 165.1 cm; Wt 120.0 kg
[2019-11-10 15:42] VITALS: BP 108/70
== END 2019-11-10 20:59 | disposition left against medical advice (07) ==
LOC: ER 15:28
DX: Z53.21 Procedure and treatment not carried out due to patient leaving prior to being seen by health care provider (principal)

== ENCOUNTER 2019-11-12 00:20 | Emergency (ER) | payer MEDICARE, MEDICAID ==
[~2019-11-12] VITALS: Ht 180.3 cm; Wt 180.0 kg
[2019-11-12] MEDS ORDERED: IPRATROPIUM/ALBUTEROL 0.5-3(2.5)MG/3ML NEB HHN ONE (02:45)
[2019-11-12 06:31] VITALS: BP 138/70
== END 2019-11-12 07:00 | disposition left against medical advice (07) ==
LOC: ER 00:20
DX: J45.901 Unspecified asthma with (acute) exacerbation (principal); R06.02 Shortness of breath; J00 Acute nasopharyngitis [common cold]; I50.9 Heart failure, unspecified; J44.9 Chronic obstructive pulmonary disease, unspecified; Z90.49 Acquired absence of other specified parts of digestive tract; Z79.82 Long term (current) use of aspirin; Z79.899 Other long term (current) drug therapy
CPT/HCPCS: 94640; 99283

== ENCOUNTER 2019-11-12 19:32 | Emergency (ER) | payer MEDICARE, MEDICAID ==
[~2019-11-12] VITALS: Ht 180.3 cm; Wt 181.0 kg
[2019-11-13 04:58] LABS: CHLORIDE 103 mEq/L (98-107)
[2019-11-13 05:07] LABS: BASOPHILS % 0.5 % (0.0-2.0); EOSINOPHILS % 1.8 % (0.0-5.0); HEMOGLOBIN. 15.3 g/dL (14.0-18.0); LYMPHOCYTES % 20.9 % (20.0-50.0); MEAN CORPUSCULAR HEMOGLOBIN 27.4 pg (28.0-32.0); MEAN CORPUSCULAR VOLUME 82.6 fL (80.0-94.0); MEAN PLATELET VOLUME 9.2 fl (7.4-10.4); MONOCYTES % 7.5 % (2.0-8.0); NEUTROPHILS % 69.3 % (40.0-76.0); PLATELET 216 x1000/uL (130-400); RED BLOOD CELL COUNT 5.57 mill/uL (4.7-6.1); RED CELL DISTRIBUTION WIDTH 14.5 % (11.6-14.6)
[2019-11-13] MEDS ORDERED: NITROGLYCERIN OINT 1GM/INCH UDPKT TD ONE (05:15)
[2019-11-13] MEDS ORDERED: FUROSEMIDE 40MG/4ML VIAL IV ONE (05:15)
[2019-11-13] MEDS ORDERED: ASPIRIN 81MG TABLET PO ONE (05:15)
[2019-11-13] MEDS ORDERED: ONDANSETRON HCL 4MG/2ML INJ IV PRN (09:30)
[2019-11-13] MEDS ORDERED: ACETAMINOPHEN 325MG TABLET PO PRN (09:30)
[2019-11-13] MEDS ORDERED: DILTIAZEM HCL 180MG CAPSULE CD 24HR PO NR (09:45)
[2019-11-13] MEDS ORDERED: IPRATROPIUM/ALBUTEROL 0.5-3(2.5)MG/3ML NEB HHN PRN (10:15)
[2019-11-13 10:42] LABS: INR 0.9; PROTHROMBIN TIME 10.3 sec (9.6-11.0)
[2019-11-13 12:35] VITALS: BP 159/81
[2019-11-13] MEDS ORDERED: FUROSEMIDE 40MG/4ML VIAL IVP SCH (17:00)
[2019-11-14] MEDS ORDERED: DILTIAZEM HCL 180MG CAPSULE CD 24HR PO SCH (09:00)
== END 2019-11-13 12:45 | disposition left against medical advice (07) ==
LOC: ER 19:32 → CANBEDREQ 11-13 13:33
DX: I11.0 Hypertensive heart disease with heart failure (principal); I50.9 Heart failure, unspecified; J45.901 Unspecified asthma with (acute) exacerbation; J44.1 Chronic obstructive pulmonary disease with (acute) exacerbation; F17.210 Nicotine dependence, cigarettes, uncomplicated; Z71.6 Tobacco abuse counseling; F12.90 Cannabis use, unspecified, uncomplicated; Z91.19 Patient's noncompliance with other medical treatment and regimen
CPT/HCPCS: 36415; 71045; 80053; 83880; 84484; 85025; 85610; 93005; 96374; 99285; J1940

== ENCOUNTER 2019-11-13 21:19 | Inpatient (IN) | payer MEDICARE, MEDICAID ==
[~2019-11-13] VITALS: Ht 175.3 cm; Wt 199.1 kg
[2019-11-13] MEDS ORDERED: NICOTINE 21MG PATCH TD ONE (22:15)
[2019-11-13] MEDS ORDERED: FUROSEMIDE 40MG/4ML VIAL IV ONE (22:15)
[2019-11-13] MEDS ORDERED: ASPIRIN 81MG TABLET PO ONE (22:15)
[2019-11-13 22:40] LABS: BASOPHILS % 0.5 % (0.0-2.0); EOSINOPHILS % 1.7 % (0.0-5.0); HEMATOCRIT. 44.3 % (42.0-52.0); HEMOGLOBIN. 14.7 g/dL (14.0-18.0); LYMPHOCYTES % 19.8 % (20.0-50.0); MEAN CORPUSCULAR HEMOGLOBIN 27.4 pg (28.0-32.0); MEAN CORPUSCULAR VOLUME 82.9 fL (80.0-94.0); MEAN PLATELET VOLUME 8.7 fl (7.4-10.4); MONOCYTES % 7.1 % (2.0-8.0); NEUTROPHILS % 70.9 % (40.0-76.0); PLATELET 195 x1000/uL (130-400); RED BLOOD CELL COUNT 5.34 mill/uL (4.7-6.1); RED CELL DISTRIBUTION WIDTH 14.3 % (11.6-14.6)
[2019-11-13 22:45] LABS: CHLORIDE 101 mEq/L (98-107)
[2019-11-13 22:46] LABS: PARTIAL THROMBOPLASTIN TIME 27.8 sec (23.4-31.0); PROTHROMBIN TIME 10.6 sec (9.6-11.0)
[2019-11-13 22:49] LABS: ETHANOL BLOOD < 10 mg/dL
[2019-11-14 00:44] LABS: CLARITY URINE CLEAR (CLEAR); COLOR URINE YELLOW (YELLOW); KETONES URINE NEGATIVE (NEGATIVE); LEUKOCYTE ESTERASE URINE NEGATIVE (NEGATIVE); NITRITE URINE NEGATIVE (NEGATIVE); OCCULT BLOOD URINE NEGATIVE (NEGATIVE); PROTEIN URINE NEGATIVE (NEGATIVE); SPECIFIC GRAVITY URINE 1.005 (1.005-1.030); UROBILINOGEN URINE 0.2 E.U./dL (0.2-1.0)
[2019-11-14 01:04] LABS: *BARBITURATES SCREEN URINE NEGATIVE (NEGATIVE); *BENZODIAZEPINES SCREEN URINE NEGATIVE (NEGATIVE); *COCAINE SCREEN URINE NEGATIVE (NEGATIVE); METHADONE URINE SCREEN NEGATIVE (NEGATIVE); OPIATES URINE SCREEN NEGATIVE (NEGATIVE)
[2019-11-14 01:06] LABS: *AMPHETAMINES SCREEN URINE NEGATIVE (NEGATIVE); CANNABINOID URINE SCREEN NEGATIVE (NEGATIVE); PHENCYCLIDINE URINE SCREEN NEGATIVE (NEGATIVE)
[2019-11-14] MEDS ORDERED: LORAZEPAM 2MG/ML CPJ IV ONE (02:00)
[2019-11-14] MEDS ORDERED: IPRATROPIUM/ALBUTEROL 0.5-3(2.5)MG/3ML NEB HHN ONE (02:00)
[2019-11-14 04:20] VITALS: BP 120/64
[2019-11-14 04:44] VITALS: BP 120/64
[2019-11-14 08:00] VITALS: BP 135/87
[2019-11-14] MEDS ORDERED: IPRATROPIUM/ALBUTEROL 0.5-3(2.5)MG/3ML NEB HHN PRN (08:00)
[2019-11-14] MEDS ORDERED: FUROSEMIDE 40MG/4ML VIAL IVP SCH (08:15)
[2019-11-14] MEDS ORDERED: ENOXAPARIN 40MG/0.4ML SYR SUBCUT SCH (09:00)
[2019-11-14 12:00] VITALS: BP 113/66
[2019-11-14] MEDS ORDERED: NICOTINE 21MG PATCH TD SCH (14:30)
[2019-11-14] MEDS ORDERED: ASPIRIN 81MG TABLET PO SCH (14:30)
[2019-11-14 16:00] VITALS: BP 144/87
[2019-11-14] MEDS ORDERED: BUDESONIDE 0.5MG/2ML NEB HHN SCH (17:00)
== END 2019-11-14 16:15 | disposition left against medical advice (07) | DRG 292 ==
LOC: ER 21:19 → 6WST 11-14 01:24 → EDBEDREQTM 11-14 01:48 → EDBEDREQ 11-14 01:48 → ENRESERV 11-14 02:17
PROVIDERS: ADMIT Internal Medicine; ATTEND Internal Medicine
DX: I11.0 Hypertensive heart disease with heart failure (principal); Z68.44 Body mass index [BMI] 60.0-69.9, adult; I50.23 Acute on chronic systolic (congestive) heart failure; I42.9 Cardiomyopathy, unspecified; G47.33 Obstructive sleep apnea (adult) (pediatric); F17.210 Nicotine dependence, cigarettes, uncomplicated; F10.21 Alcohol dependence, in remission; Z53.29 Procedure and treatment not carried out because of patient's decision for other reasons; E66.01 Morbid (severe) obesity due to excess calories; J44.9 Chronic obstructive pulmonary disease, unspecified; I48.91 Unspecified atrial fibrillation; I49.3 Ventricular premature depolarization; Z90.49 Acquired absence of other specified parts of digestive tract; Z91.19 Patient's noncompliance with other medical treatment and regimen; Z88.8 Allergy status to other drugs, medicaments and biological substances; Z79.899 Other long term (current) drug therapy; Z71.6 Tobacco abuse counseling; Z71.3 Dietary counseling and surveillance
CPT/HCPCS: 36415; 71045; 80053; 80305; 80320; 81003; 83880; 84484; 85025; 93005; 93970; 99285; J1650; J1940; J2060; G0480

== ENCOUNTER 2019-11-14 19:44 | Emergency (ER) | payer MEDICARE, MEDICAID ==
[~2019-11-14] VITALS: Ht 180.3 cm; Wt 180.0 kg
[2019-11-15 00:44] VITALS: BP 142/76
== END 2019-11-15 06:37 | disposition left against medical advice (07) ==
LOC: ER 19:44
DX: Z53.21 Procedure and treatment not carried out due to patient leaving prior to being seen by health care provider (principal)

== ENCOUNTER 2019-11-15 21:27 | Emergency (ER) | payer MEDICARE, MEDICAID ==
[~2019-11-15] VITALS: Ht 180.3 cm; Wt 181.0 kg
[2019-11-16] MEDS ORDERED: FUROSEMIDE 40MG TABLET PO ONE (04:00)
[2019-11-16] MEDS ORDERED: IPRATROPIUM/ALBUTEROL 0.5-3(2.5)MG/3ML NEB HHN ONE (04:00)
[2019-11-16 04:09] VITALS: BP 148/76
== END 2019-11-16 05:50 | disposition home or self-care (01) ==
LOC: ER 21:27
DX: J45.901 Unspecified asthma with (acute) exacerbation (principal); Z88.8 Allergy status to other drugs, medicaments and biological substances; Z79.82 Long term (current) use of aspirin; Z79.899 Other long term (current) drug therapy; Z90.49 Acquired absence of other specified parts of digestive tract
CPT/HCPCS: 71045; 94640; 99283

== ENCOUNTER 2019-11-16 22:48 | Emergency (ER) | payer MEDICARE, MEDICAID ==
[~2019-11-16] VITALS: Ht 177.8 cm; Wt 160.0 kg
[2019-11-16] MEDS ORDERED: ALBUTEROL (0.083%) 2.5MG/3ML NEB HHN STA (23:24)
[2019-11-16] MEDS ORDERED: IPRATROPIUM BROMIDE (0.02%) 0.5MG/2.5ML NEB HHN STA (23:24)
[2019-11-16] MEDS ORDERED: PREDNISONE 20MG TABLET PO ONE (23:30)
[2019-11-16] MEDS ORDERED: FUROSEMIDE 40MG TABLET PO ONE (23:30)
[2019-11-16] MEDS ORDERED: IPRATROPIUM/ALBUTEROL 0.5-3(2.5)MG/3ML NEB ONE (23:44)
[2019-11-16 23:51] LABS: BASOPHILS % 0.4 % (0.0-2.0); EOSINOPHILS % 1.6 % (0.0-5.0); HEMATOCRIT. 42.7 % (42.0-52.0); HEMOGLOBIN. 14.1 g/dL (14.0-18.0); LYMPHOCYTES % 18.5 % (20.0-50.0); MEAN CORPUSCULAR HEMOGLOBIN 27.5 pg (28.0-32.0); MEAN PLATELET VOLUME 9.1 fl (7.4-10.4); MONOCYTES % 8.5 % (2.0-8.0); PLATELET 195 x1000/uL (130-400); RED BLOOD CELL COUNT 5.14 mill/uL (4.7-6.1); RED CELL DISTRIBUTION WIDTH 14.9 % (11.6-14.6)
[2019-11-16 23:55] LABS: CHLORIDE 105 mEq/L (98-107)
[2019-11-17 01:30] VITALS: BP 121/78
== END 2019-11-17 02:42 | disposition left against medical advice (07) ==
LOC: ER 22:48 → EDBEDREQ 11-17 01:59 → EDBEDREQTM 11-17 02:07 → ER 11-17 02:42 → CANRESERV 11-17 13:42 → ENRESERV 11-17 13:42 → CANBEDREQ 11-17 13:45
DX: J44.1 Chronic obstructive pulmonary disease with (acute) exacerbation (principal); I50.9 Heart failure, unspecified; Z59.0 Homelessness
CPT/HCPCS: 36415; 71045; 80053; 83880; 84484; 85025; 93005; 94640; 99285; J7512

== ENCOUNTER 2019-11-17 06:56 | Emergency (ER) | payer MEDICARE, MEDICAID ==
[~2019-11-17] VITALS: Ht 180.3 cm; Wt 181.0 kg
[2019-11-17 07:02] VITALS: BP 153/69
[2019-11-17] MEDS ORDERED: CLONIDINE 0.1MG TABLET PO PRN (09:00)
[2019-11-17] MEDS ORDERED: ENOXAPARIN 40MG/0.4ML SYR SUBCUT SCH (09:00)
[2019-11-17] MEDS ORDERED: IPRATROPIUM/ALBUTEROL 0.5-3(2.5)MG/3ML NEB HHN PRN (09:00)
[2019-11-17] MEDS ORDERED: ONDANSETRON HCL 4MG/2ML INJ IV PRN (09:00)
[2019-11-17] MEDS ORDERED: ACETAMINOPHEN 325MG TABLET PO PRN (09:00)
[2019-11-17] MEDS ORDERED: GUAIFENESIN 200MG/10ML SUGAR FREE UDC PO PRN (09:00)
== END 2019-11-17 18:20 | disposition left against medical advice (07) ==
LOC: ER 06:56
DX: J44.9 Chronic obstructive pulmonary disease, unspecified (principal); I50.9 Heart failure, unspecified; Z87.891 Personal history of nicotine dependence
CPT/HCPCS: 99281

== ENCOUNTER 2019-11-19 02:14 | Emergency (ER) | payer MEDICARE, MEDICAID ==
[~2019-11-19] VITALS: Ht 180.3 cm; Wt 173.0 kg
[2019-11-19 02:22] VITALS: BP 134/72
[2019-11-19] MEDS ORDERED: ALBUTEROL (0.083%) 2.5MG/3ML NEB HHN STA (02:46)
[2019-11-19] MEDS ORDERED: IPRATROPIUM BROMIDE (0.02%) 0.5MG/2.5ML NEB HHN STA (02:46)
[2019-11-19] MEDS ORDERED: FUROSEMIDE 40MG TABLET PO ONE (03:00)
== END 2019-11-19 03:00 | disposition left against medical advice (07) ==
LOC: ER 02:14
DX: R06.02 Shortness of breath (principal); Z59.0 Homelessness; I50.9 Heart failure, unspecified; J44.9 Chronic obstructive pulmonary disease, unspecified; I48.91 Unspecified atrial fibrillation; Z90.49 Acquired absence of other specified parts of digestive tract; Z79.82 Long term (current) use of aspirin; Z79.899 Other long term (current) drug therapy; Z88.8 Allergy status to other drugs, medicaments and biological substances
CPT/HCPCS: 99281

== ENCOUNTER 2019-11-20 00:53 | Emergency (ER) | payer MEDICARE, MEDICAID ==
[~2019-11-20] VITALS: Ht 177.8 cm; Wt 159.0 kg
[2019-11-20 01:01] VITALS: BP 151/91
== END 2019-11-20 01:43 | disposition left against medical advice (07) ==
LOC: ER 00:53
DX: M79.662 Pain in left lower leg (principal); I10 Essential (primary) hypertension
CPT/HCPCS: 99283

== ENCOUNTER 2019-11-21 10:33 | Emergency (ER) | payer MEDICARE, MEDICAID ==
[~2019-11-21] VITALS: Ht 172.7 cm; Wt 120.0 kg
[2019-11-21 16:15] VITALS: BP 132/99
== END 2019-11-21 18:22 | disposition left against medical advice (07) ==
LOC: ER 11:01
DX: R06.02 Shortness of breath (principal); Z53.21 Procedure and treatment not carried out due to patient leaving prior to being seen by health care provider

== ENCOUNTER 2019-11-21 21:37 | Emergency (ER) | payer MEDICARE, MEDICAID ==
[~2019-11-21] VITALS: Ht 180.3 cm; Wt 200.0 kg
[2019-11-22] MEDS ORDERED: ALBUTEROL (0.083%) 2.5MG/3ML NEB HHN STA (00:01)
[2019-11-22] MEDS ORDERED: IPRATROPIUM BROMIDE (0.02%) 0.5MG/2.5ML NEB HHN STA (00:01)
[2019-11-22] MEDS ORDERED: FUROSEMIDE 40MG/4ML VIAL IVP ONE (00:15)
[2019-11-22] MEDS ORDERED: IPRATROPIUM/ALBUTEROL 0.5-3(2.5)MG/3ML NEB ONE (00:24)
[2019-11-22] MEDS ORDERED: FUROSEMIDE 40MG TABLET PO ONE (00:30)
[2019-11-22 00:34] LABS: BASOPHILS % 0.4 % (0.0-2.0); EOSINOPHILS % 1.8 % (0.0-5.0); HEMATOCRIT. 45.1 % (42.0-52.0); LYMPHOCYTES % 13.9 % (20.0-50.0); MEAN CORPUSCULAR HEMOGLOBIN 27.5 pg (28.0-32.0); MEAN CORPUSCULAR VOLUME 82.3 fL (80.0-94.0); MEAN PLATELET VOLUME 8.8 fl (7.4-10.4); MONOCYTES % 6.7 % (2.0-8.0); NEUTROPHILS % 77.2 % (40.0-76.0); PLATELET 182 x1000/uL (130-400); RED BLOOD CELL COUNT 5.48 mill/uL (4.7-6.1); RED CELL DISTRIBUTION WIDTH 14.3 % (11.6-14.6)
[2019-11-22 00:44] LABS: CHLORIDE 104 mEq/L (98-107)
[2019-11-22 00:47] LABS: ETHANOL BLOOD < 10 mg/dL
[2019-11-22 01:29] LABS: CLARITY URINE CLEAR (CLEAR); COLOR URINE YELLOW (YELLOW); KETONES URINE TRACE (NEGATIVE); LEUKOCYTE ESTERASE URINE NEGATIVE (NEGATIVE); NITRITE URINE NEGATIVE (NEGATIVE); OCCULT BLOOD URINE NEGATIVE (NEGATIVE); PH URINE 5.5 (4.5-8.0); PROTEIN URINE NEGATIVE (NEGATIVE); SPECIFIC GRAVITY URINE 1.027 (1.005-1.030)
[2019-11-22 02:05] LABS: *BARBITURATES SCREEN URINE NEGATIVE (NEGATIVE); *BENZODIAZEPINES SCREEN URINE NEGATIVE (NEGATIVE); *COCAINE SCREEN URINE NEGATIVE (NEGATIVE)
[2019-11-22 02:06] LABS: *AMPHETAMINES SCREEN URINE NEGATIVE (NEGATIVE); CANNABINOID URINE SCREEN NEGATIVE (NEGATIVE); METHADONE URINE SCREEN NEGATIVE (NEGATIVE); OPIATES URINE SCREEN NEGATIVE (NEGATIVE); PHENCYCLIDINE URINE SCREEN NEGATIVE (NEGATIVE)
[2019-11-22 06:53] VITALS: BP 129/82
== END 2019-11-22 07:19 | disposition left against medical advice (07) ==
LOC: ER 21:37
DX: J44.1 Chronic obstructive pulmonary disease with (acute) exacerbation (principal)
CPT/HCPCS: 36415; 71045; 80053; 80305; 80307; 80320; 80329; 81003; 83880; 84484; 85025; 93005; 94640; 99285; G0480

== ENCOUNTER 2022-08-24 12:49 | Emergency (ER) | payer OTHER, MEDICAID ==
[~2022-08-24] VITALS: Ht 188 cm; Wt 120.0 kg
[~2022-08-24 12:49] MED LIST changes: -HAL5 PO; +HALO5TAB2 PO; +LISI10TA26 PO; -LISI10TA5 PO
[2022-08-24 13:05] VITALS: BP 134/62
[2022-08-24] MEDS ORDERED: VISCOUS LIDOCAINE 2% 15 ML UDC MM STA (13:36)
[2022-08-24] MEDS ORDERED: FURO-151 MT (13:39)
[2022-08-24] MEDS ORDERED: LISI10TA26 MT (13:39)
[2022-08-24] MEDS ORDERED: XLV MT (13:39)
== END 2022-08-24 15:09 | disposition home or self-care (01) ==
LOC: ER 13:16
DX: J06.9 Acute upper respiratory infection, unspecified (principal); R60.0 Localized edema; Z76.0 Encounter for issue of repeat prescription; I11.0 Hypertensive heart disease with heart failure; I50.9 Heart failure, unspecified; F48.8 Other specified nonpsychotic mental disorders; Z59.00 Homelessness unspecified
CPT/HCPCS: 99283

== ENCOUNTER 2022-08-24 22:32 | Emergency (ER) | payer OTHER, MEDICAID ==
[~2022-08-24 22:32] MED LIST changes: +FURO-151 MT; +LISI10TA26 MT; +XLV MT
== END 2022-08-24 23:06 | disposition left against medical advice (07) ==
LOC: ER 22:32
DX: Z53.21 Procedure and treatment not carried out due to patient leaving prior to being seen by health care provider (principal)

== ENCOUNTER 2022-08-25 01:36 | Emergency (ER) | payer OTHER, MEDICAID ==
[~2022-08-25] VITALS: Ht 180.3 cm; Wt 174.4 kg
[2022-08-25 01:52] VITALS: BP 145/79
== END 2022-08-25 08:28 | disposition left against medical advice (07) ==
LOC: ER 01:36
DX: Z53.21 Procedure and treatment not carried out due to patient leaving prior to being seen by health care provider (principal)

== ENCOUNTER 2022-12-23 21:33 | Emergency (ER) | payer MEDICAID ==
[~2022-12-23] VITALS: Ht 177.8 cm; Wt 136.0 kg
[2022-12-23 21:47] VITALS: BP 174/90
[2022-12-24] MEDS ORDERED: VISCOUS LIDOCAINE 2% 15 ML UDC MM STA (01:00)
[2022-12-24] MEDS ORDERED: IPRATROPIUM/ALBUTEROL 0.5-3(2.5)MG/3ML NEB HHN ONE (01:00)
[2022-12-24 01:30] LABS: BASOPHILS % 0.4 % (0.0-2.0); EOSINOPHILS % 2.4 % (0.0-5.0); HEMATOCRIT. 37.8 % (42.0-52.0); HEMOGLOBIN. 12.5 g/dL (14.0-18.0); LYMPHOCYTES % 22.3 % (20.0-50.0); MEAN CORPUSCULAR HEMOGLOBIN 27.7 pg (28.0-32.0); MEAN CORPUSCULAR VOLUME 83.4 fL (80.0-94.0); MONOCYTES % 7.1 % (2.0-8.0); NEUTROPHILS % 67.8 % (40.0-76.0); PLATELET 188 x1000/uL (130-400); RED BLOOD CELL COUNT 4.54 mill/uL (4.7-6.1); RED CELL DISTRIBUTION WIDTH 15.5 % (11.6-14.6)
[2022-12-24 01:44] LABS: CHLORIDE 107 mEq/L (98-107)
[2022-12-24] MEDS ORDERED: ALBU18HF2 IH (02:00)
[2022-12-24] MEDS ORDERED: BENZ100C86 MT (02:00)
[2022-12-24] MEDS ORDERED: AZIT250T12 MT (02:01)
== END 2022-12-24 02:14 | disposition home or self-care (01) ==
LOC: ER 21:33
DX: R06.02 Shortness of breath (principal); Z90.49 Acquired absence of other specified parts of digestive tract; Z79.899 Other long term (current) drug therapy
CPT/HCPCS: 36415; 71045; 80053; 85025; 94640; 99284; Z7610

== ENCOUNTER 2023-05-08 21:00 | Inpatient (IN) | payer MEDICARE, MEDICAID ==
[~2023-05-08] VITALS: Ht 180.3 cm; Wt 179.7 kg
[~2023-05-08 21:00] MED LIST changes: +ALBU18HF2 IH; +ALBU6.7H3 INH; +AZIT250T12 MT; +BENZ100C86 MT; +FURO40TA5 PO; +HALO10TA13 PO; +OMEP20TA15 PO
[2023-05-08 22:20] LABS: BASOPHILS % 0.8 % (0.0-2.0); EOSINOPHILS % 1.6 % (0.0-5.0); HEMATOCRIT. 34.1 % (42.0-52.0); HEMOGLOBIN. 11.3 g/dL (14.0-18.0); LYMPHOCYTES % 16.9 % (20.0-50.0); MEAN CORPUSCULAR HEMOGLOBIN 28.1 pg (28.0-32.0); MEAN CORPUSCULAR HGB CONC 33.2 g/dL (31.0-37.0); MEAN CORPUSCULAR VOLUME 84.6 fL (80.0-94.0); MEAN PLATELET VOLUME 8.9 fl (7.4-10.4); MONOCYTES % 6.8 % (2.0-8.0); NEUTROPHILS % 73.9 % (40.0-76.0); PLATELET 238 x1000/uL (130-400); RED BLOOD CELL COUNT 4.03 mill/uL (4.7-6.1); RED CELL DISTRIBUTION WIDTH 14.4 % (11.6-14.6); WHITE BLOOD COUNT 10.9 x1000/uL (4.5-11.0)
[2023-05-08 22:36] LABS: CHLORIDE 109 mEq/L (98-107); INDEX HEMOLYSI 1 (1-3); INDEX ICTERIC 1 (1-4); INDEX LIPEMIC 1 (1-3); POTASSIUM 3.6 mEq/L (3.5-5.1); SODIUM 139 mEq/L (136-145)
[2023-05-08 22:46] LABS: ALANINE AMINOTRANSFERASE 26 IU/L (13-61); ALBUMIN 3.4 g/dL (3.4-5.0); ASPARTATE AMINOTRANSFERASE 10 IU/L (15-37); BILIRUBIN TOTAL 0.2 mg/dL (0.1-1.0); CALCIUM 8.1 mg/dL (8.5-10.1); CARBON DIOXIDE 27 mEq/L (21-32); CREATININE 1.7 mg/dL (0.6-1.3); ETHANOL BLOOD < 10 mg/dL (-10); GLUCOSE 110 mg/dL (70-105); NT PRO B-TYPE NATRIURETIC PEP 122 pg/mL (5-125); PROTEIN TOTAL 6.4 g/dL (6.0-8.3); TROPONIN I HIGH SENSITIVITY 7 ng/L (<78); UREA NITROGEN BLOOD 28 mg/dL (7-21)
[2023-05-08] MEDS ORDERED: ASPIRIN 81MG TABLET PO ONE (23:30)
[2023-05-08] MEDS ORDERED: FUROSEMIDE 40MG/4ML VIAL IV ONE (23:30)
[2023-05-09] VITALS (7 sets, daily range): BP systolic 96–151; BP diastolic 65–76; PULSE 71–100; RESP 16–20; TEMP 97.7–98.3
[2023-05-09] MEDS ORDERED: DOCUSATE SODIUM 100MG CAPSULE PO PRN (02:45)
[2023-05-09] MEDS ORDERED: ONDANSETRON HCL 4MG/2ML INJ IV PRN (02:45)
[2023-05-09] MEDS ORDERED: MAGNESIUM/ALUMINUM HYDROXIDE/SIMETHICONE 30ML UDC PO PRN (02:45)
[2023-05-09] MEDS ORDERED: CLONIDINE 0.1MG TABLET PO PRN (02:45)
[2023-05-09] MEDS ORDERED: ACETAMINOPHEN 325MG TABLET PO PRN ×2 (02:45)
[2023-05-09] MEDS ORDERED: GUAIFENESIN 200MG/10ML SUGAR FREE UDC PO PRN (02:45)
[2023-05-09] MEDS: ENOXAPARIN 40MG/0.4ML SYR SUBCUT SCH ×2 (08:58→20:41)
[2023-05-09] MEDS: FUROSEMIDE 100MG/10ML VIAL IVP SCH ×2 (08:58→20:44)
[2023-05-09] MEDS: POTASSIUM CHLORIDE 20MEQ TABLET SR PO SCH (11:22)
[2023-05-09] MEDS ORDERED: DILTIAZEM HCL 5MG/ML 5ML VIAL IV PRN (11:30)
[2023-05-09 21:40] LABS: INDEX HEMOLYSI 1 (1-3)
[2023-05-09 21:43] LABS: INDEX HEMOLYSI 1 (1-3)
[2023-05-09] MEDS: IPRATROPIUM/ALBUTEROL 0.5-3(2.5)MG/3ML NEB HHN PRN (21:48)
[2023-05-09 21:49] LABS: CREATINE KINASE 105 IU/L (39-308); CREATINE KINASE MB FRACTION < 1.0 ng/mL (0.5-3.6); TROPONIN I HIGH SENSITIVITY 7 ng/L (<78)
[2023-05-09 22:14] LABS: FOLIC ACID (FOLATE) SERUM > 20.00 ng/mL (>5.38); VITAMIN B12 SERUM 627 pg/mL (211-911)
[2023-05-10 04:00] VITALS: BP 111/67; PULSE 87; RESP 16; TEMP 99.4
[2023-05-10 08:00] VITALS: BP 133/82; PULSE 73; RESP 22; TEMP 97.1
[2023-05-10] MEDS: POTASSIUM CHLORIDE 20MEQ TABLET SR PO SCH (09:07)
[2023-05-10] MEDS: FUROSEMIDE 100MG/10ML VIAL IVP SCH (09:07)
[2023-05-10] MEDS: ENOXAPARIN 40MG/0.4ML SYR SUBCUT SCH (09:07)
[2023-05-10 10:07] LABS: CLARITY URINE CLEAR (CLEAR); COLOR URINE YELLOW (YELLOW); GLUCOSE URINE NEGATIVE (NEGATIVE); KETONES URINE NEGATIVE (NEGATIVE); LEUKOCYTE ESTERASE URINE NEGATIVE (NEGATIVE); NITRITE URINE NEGATIVE (NEGATIVE); OCCULT BLOOD URINE NEGATIVE (NEGATIVE); PROTEIN URINE NEGATIVE (NEGATIVE); SPECIFIC GRAVITY URINE 1.012 (1.005-1.030); UROBILINOGEN URINE 0.2 E.U./dL (0.2-1.0)
[2023-05-10 10:29] LABS: *AMPHETAMINES SCREEN URINE NEGATIVE (NEGATIVE); *BARBITURATES SCREEN URINE NEGATIVE (NEGATIVE); *BENZODIAZEPINES SCREEN URINE NEGATIVE (NEGATIVE); *COCAINE SCREEN URINE NEGATIVE (NEGATIVE); CANNABINOID URINE SCREEN NEGATIVE (NEGATIVE); ECSTASY MDMA SCREEN URINE NEGATIVE (NEGATIVE); METHADONE URINE SCREEN NEGATIVE (NEGATIVE); OPIATES URINE SCREEN NEGATIVE (NEGATIVE); PHENCYCLIDINE URINE SCREEN NEGATIVE (NEGATIVE)
[2023-05-10 12:00] VITALS: BP 101/50; PULSE 96; RESP 22; TEMP 96.9
[2023-05-10] MEDS: IPRATROPIUM/ALBUTEROL 0.5-3(2.5)MG/3ML NEB HHN PRN (14:25)
[2023-05-10 14:35] VITALS: PULSE 96; RESP 20; O2SAT 97
[2023-05-10 16:00] VITALS: BP 146/82; PULSE 75; RESP 22; TEMP 97
[2023-05-10 16:34] LABS: BASOPHILS % 0.5 % (0.0-2.0); EOSINOPHILS % 1.7 % (0.0-5.0); HEMOGLOBIN. 12.5 g/dL (14.0-18.0); LYMPHOCYTES % 17.6 % (20.0-50.0); MEAN CORPUSCULAR HEMOGLOBIN 27.7 pg (28.0-32.0); MEAN CORPUSCULAR HGB CONC 32.8 g/dL (31.0-37.0); MEAN CORPUSCULAR VOLUME 84.5 fL (80.0-94.0); MEAN PLATELET VOLUME 8.9 fl (7.4-10.4); MONOCYTES % 8.4 % (2.0-8.0); NEUTROPHILS % 71.8 % (40.0-76.0); PLATELET 259 x1000/uL (130-400); RED CELL DISTRIBUTION WIDTH 14.3 % (11.6-14.6); WHITE BLOOD COUNT 9.1 x1000/uL (4.5-11.0)
[2023-05-10 16:49] LABS: CHLORIDE 105 mEq/L (98-107); INDEX HEMOLYSI 1 (1-3); INDEX ICTERIC 1 (1-4); INDEX LIPEMIC 1 (1-3); POTASSIUM 3.7 mEq/L (3.5-5.1); SODIUM 139 mEq/L (136-145)
[2023-05-10 17:09] LABS: ALANINE AMINOTRANSFERASE 23 IU/L (13-61); ALBUMIN 3.6 g/dL (3.4-5.0); ASPARTATE AMINOTRANSFERASE 8 IU/L (15-37); BILIRUBIN TOTAL 0.3 mg/dL (0.1-1.0); CALCIUM 8.8 mg/dL (8.5-10.1); CARBON DIOXIDE 32 mEq/L (21-32); CREATININE 1.2 mg/dL (0.6-1.3); GLUCOSE 138 mg/dL (70-105); PROTEIN TOTAL 6.9 g/dL (6.0-8.3); T4 FREE 0.76 ng/dL (0.76-1.46); THYROID STIMULATING HORMONE 0.73 uIU/mL (0.36-3.74); UREA NITROGEN BLOOD 16 mg/dL (7-21)
[2023-05-12] MEDS ORDERED: ALBU6.7H3 INH (02:15)
[2023-05-12] MEDS ORDERED: DILT-27 PO (02:15)
[2023-05-12] MEDS ORDERED: FURO-151 MT (02:15)
[2023-05-12] MEDS ORDERED: APIX5TAB MT (02:15)
[2023-05-12] MEDS ORDERED: HALO10TA13 PO (02:15)
[2023-05-12] MEDS ORDERED: METO-396 PO (02:15)
[2023-05-12] MEDS ORDERED: LISI10TA26 MT (02:38)
== END 2023-05-10 17:45 | disposition left against medical advice (07) | DRG 291 ==
LOC: ER 21:00 → MICUSO 05-09 00:23 → EDBEDREQ 05-09 00:25 → 7WST 05-09 02:14
PROVIDERS: ADMIT Hospitalist; ATTEND Hospitalist
DX: I11.0 Hypertensive heart disease with heart failure (principal); I50.43 Acute on chronic combined systolic (congestive) and diastolic (congestive) heart failure; J96.00 Acute respiratory failure, unspecified whether with hypoxia or hypercapnia; Z68.43 Body mass index [BMI] 50.0-59.9, adult; F20.9 Schizophrenia, unspecified; Z53.29 Procedure and treatment not carried out because of patient's decision for other reasons; D64.9 Anemia, unspecified; E66.01 Morbid (severe) obesity due to excess calories; G47.33 Obstructive sleep apnea (adult) (pediatric); Z90.49 Acquired absence of other specified parts of digestive tract
CPT/HCPCS: 36415; 71045; 80053; 80061; 80305; 80320; 81003; 82550; 82553; 82607; 82746; 83540; 83550; 83880; 84439; 84443; 84484; 85025; 93005; 93306; 94640; 99281; 99285; 99291; J1650; J1940; G0480

== ENCOUNTER 2023-06-10 20:02 | Emergency (ER) | payer MEDICARE, MEDICAID ==
[~2023-06-10] VITALS: Ht 177.8 cm; Wt 145.0 kg
[~2023-06-10 20:02] MED LIST changes: +APIX5TAB MT
[2023-06-10 20:12] VITALS: TEMP 98.4; O2SAT 98
[2023-06-10] MEDS ORDERED: DILT-27 PO (21:44)
[2023-06-10] MEDS ORDERED: FURO40TA5 PO (21:46)
[2023-06-10] MEDS ORDERED: GABA-532 PO (21:46)
[2023-06-10] MEDS ORDERED: IBUP-2030 MT (21:47)
[2023-06-10] MEDS ORDERED: ALBU6.7H3 INH (21:47)
[2023-06-10] MEDS ORDERED: HALO10TA13 PO (21:47)
[2023-06-10 22:04] VITALS: BP 129/77; PULSE 81; RESP 17
== END 2023-06-10 23:00 | disposition home or self-care (01) ==
LOC: ER 22:24
DX: I11.0 Hypertensive heart disease with heart failure (principal); I50.9 Heart failure, unspecified; Z76.0 Encounter for issue of repeat prescription; J44.9 Chronic obstructive pulmonary disease, unspecified; F20.9 Schizophrenia, unspecified; Z90.49 Acquired absence of other specified parts of digestive tract; Z79.899 Other long term (current) drug therapy; Z88.8 Allergy status to other drugs, medicaments and biological substances
CPT/HCPCS: 99283

== ENCOUNTER 2023-06-16 01:00 | Emergency (ER) | payer MEDICARE, MEDICAID ==
[~2023-06-16] VITALS: Ht 180.3 cm; Wt 154.0 kg
[~2023-06-16 01:00] MED LIST changes: +GABA-532 PO; +IBUP-2030 MT
[2023-06-16 01:03] VITALS: BP 142/76; PULSE 80; RESP 18; TEMP 98.4; O2SAT 98
[2023-06-16] MEDS ORDERED: MAGNESIUM/ALUMINUM HYDROXIDE/SIMETHICONE 30ML UDC PO ONE (02:30)
[2023-06-16] MEDS ORDERED: ONDANSETRON 4MG ODT PO ONE (02:30)
[2023-06-16] MEDS ORDERED: FAMOTIDINE 20MG TABLET PO ONE (02:30)
== END 2023-06-16 04:07 | disposition home or self-care (01) ==
LOC: ER 01:00
DX: R10.13 Epigastric pain (principal); J44.9 Chronic obstructive pulmonary disease, unspecified; I11.0 Hypertensive heart disease with heart failure; I50.9 Heart failure, unspecified; F20.9 Schizophrenia, unspecified; Z90.49 Acquired absence of other specified parts of digestive tract; Z88.8 Allergy status to other drugs, medicaments and biological substances; Z79.899 Other long term (current) drug therapy
CPT/HCPCS: 99284; Q0162

== ENCOUNTER 2023-06-29 21:07 | Emergency (ER) | payer MEDICARE, MEDICAID ==
[~2023-06-29] VITALS: Ht 193 cm; Wt 154.0 kg
[2023-06-29 21:09] VITALS: O2SAT 100
[2023-06-30 02:16] VITALS: BP 125/75; PULSE 90; RESP 16; TEMP 98.6
== END 2023-06-30 05:34 | disposition left against medical advice (07) ==
LOC: ER 21:07
DX: F41.9 Anxiety disorder, unspecified (principal); Z53.21 Procedure and treatment not carried out due to patient leaving prior to being seen by health care provider
CPT/HCPCS: 99281

== ENCOUNTER 2023-07-01 12:09 | Emergency (ER) | payer MEDICARE, MEDICAID ==
[~2023-07-01] VITALS: Ht 167.6 cm; Wt 168.0 kg
[2023-07-01 12:12] VITALS: TEMP 98.6
[2023-07-01] MEDS ORDERED: SODIUM CHLORIDE 0.9% 1,000 ML IV ONE (12:45)
[2023-07-01] MEDS ORDERED: IPRATROPIUM/ALBUTEROL 0.5-3(2.5)MG/3ML NEB HHN ONE ×2 (13:30→16:15)
[2023-07-01 13:59] LABS: BASOPHILS % 0.3 % (0.0-2.0); EOSINOPHILS % 1.4 % (0.0-5.0); HEMATOCRIT. 32.1 % (42.0-52.0); HEMOGLOBIN. 10.3 g/dL (14.0-18.0); LYMPHOCYTES % 12.5 % (20.0-50.0); MEAN CORPUSCULAR HEMOGLOBIN 26.7 pg (28.0-32.0); MEAN CORPUSCULAR HGB CONC 32.2 g/dL (31.0-37.0); MEAN CORPUSCULAR VOLUME 83.1 fL (80.0-94.0); MEAN PLATELET VOLUME 9.3 fl (7.4-10.4); MONOCYTES % 11.5 % (2.0-8.0); NEUTROPHILS % 74.3 % (40.0-76.0); PLATELET 218 x1000/uL (130-400); RED BLOOD CELL COUNT 3.87 mill/uL (4.7-6.1); RED CELL DISTRIBUTION WIDTH 15.6 % (11.6-14.6); WHITE BLOOD COUNT 11.9 x1000/uL (4.5-11.0)
[2023-07-01 14:44] VITALS: PULSE 70; RESP 18; O2SAT 98
[2023-07-01 14:59] LABS: CHLORIDE 116 mEq/L (98-107); INDEX HEMOLYSI 1 (1-3); INDEX ICTERIC 1 (1-4); INDEX LIPEMIC 1 (1-3); POTASSIUM 3.7 mEq/L (3.5-5.1); SODIUM 138 mEq/L (136-145)
[2023-07-01 15:15] LABS: ALANINE AMINOTRANSFERASE 33 IU/L (13-61); ALBUMIN 3.4 g/dL (3.4-5.0); ASPARTATE AMINOTRANSFERASE 24 IU/L (15-37); BILIRUBIN TOTAL 0.4 mg/dL (0.1-1.0); CALCIUM 6.7 mg/dL (8.5-10.1); CARBON DIOXIDE 13 mEq/L (21-32); CREATININE 3.3 mg/dL (0.6-1.3); ETHANOL BLOOD < 10 mg/dL (<10); GLUCOSE 101 mg/dL (70-105); NT PRO B-TYPE NATRIURETIC PEP 33 pg/mL (5-125); PROTEIN TOTAL 6.7 g/dL (6.0-8.3); TROPONIN I HIGH SENSITIVITY 9 ng/L (<78); UREA NITROGEN BLOOD 69 mg/dL (7-21)
[2023-07-01 15:51] VITALS: BP 117/51; PULSE 79; RESP 12
== END 2023-07-01 17:07 | disposition left against medical advice (07) ==
LOC: ER 12:09 → CANBEDREQ 17:09
DX: R53.1 Weakness (principal); I11.0 Hypertensive heart disease with heart failure; I50.9 Heart failure, unspecified; J45.909 Unspecified asthma, uncomplicated; F20.9 Schizophrenia, unspecified; Z79.899 Other long term (current) drug therapy; Z90.49 Acquired absence of other specified parts of digestive tract
CPT/HCPCS: 80053; 80320; 83880; 85025; 84484; 36415; 71045; 93005; 96360; 99285; J7030; G0480